=== PATIENT | male | born 1970 | race Caucasian/White ===

== ENCOUNTER 2019-09-01 05:48 | Outpatient (RCR) | payer MEDICARE, MEDICAID, SELFPAY ==
[2019-08-14 09:28] LABS: Basophils % 0.6 %; Eosinophils # 0.2 10^3/uL (0.0-0.8); Eosinophils % 3.5 %; Hematocrit 42.2 % (42.0-52.0); Hemoglobin 14.2 g/dL (11.7-16.6); Lymphocytes % 44.3 %; Mean Corpuscular HGB Conc 33.6 g/dL (30.0-36.0); Mean Corpuscular Hemoglobin 28.8 pg (28.0-34.0); Mean Corpuscular Volume 85.6 fL (80-94); Mean Platelet Volume 9.7 fL (7.4-10.4); Monocytes # 0.4 10^3/uL (0.2-0.9); Neutrophils # 3.1 10^3/uL (1.8-7.7); Neutrophils % 45.2 %; Nucleated Red Blood Cells % 0 %; Platelet Count 256 10^3/cmm (130-400); Red Blood Count 4.93 10^6/uL (4.1-5.3); Red Cell Distribution Width 11.8 % (12.1-15.1); White Blood Count 6.8 10^3/uL (4.0-10.0)
[2019-08-14 09:48] LABS: Prostate Specific Antigen 5.95 ng/mL (0-4)
[2019-08-14 09:59] LABS: Alanine Aminotransferase 18 U/L (0-41); Albumin Level 4.8 g/dL (3.5-5.2); Alkaline Phosphatase 65 IU/L (40-130); Anion Gap 16.7 (5-19); Aspartate Amino Transferase 18 U/L (0-40); Blood Urea Nitrogen 18 mg/dL (6-20); Calcium 9.7 mg/Dl (8.6-10.0); Carbon Dioxide 27 mmol/L (22-29); Chloride 99 mmol/L (98-107); Globulin 2.4 g/dL (1.3-4.6); Glomerular Filtration Rate 89.3 mL/min (90-130); Glucose 105 mg/dL (74-109); Potassium 3.7 mmol/L (3.5-5.1); Sodium 139 mmol/L (136-145); Total Bilirubin 0.4 mg/dL (0.15-1.2); Total Protein 7.2 g/dL (6.6-8.7)
[2019-08-14 11:06] LABS: Testosterone Total 2.5 ng/dL (193-740)
--- NOTE | 2019-08-14 17:05 | ONC FU_ITS ---
Dr. Meier follow up note Patient: Carmine Kong Unit #: [id number]: 1970 Dicatated By: Jackelin Meier M.D.Date of Visit:Aug 14, 2019 Onc Med Follow-up/Prog Note History of Present Illness: Mr. Carmine Kong, is a 49-year-old gentleman with history of hematuria eventually diagnosed with right renal stone in 2016 that time he underwent right ureteral stent and multiple ESWL and during follow-up he was noted to have elevated PSA and on 06/02/2019 his PSA was 71.94 and with abnormal KARI e.g. distinct firmness on the right apex. And on 06/02/2019, Patient underwent ultrasound guided biopsy and sonogram showed hypoechoic lesion, large area of right side of prostate extending what appears to be extraprostatic toward the base. Also significant portion of peripheral zone appeared hypoechoic. Multiple biopsies were obtained, 4 on the left side and 6 on the right, final pathology report came back large volume Otilio 3+4 prostate adenocarcinoma bilaterally, PSA was 71.94 at the time of diagnosis .Patient was started on Bicalutamide 50 mg by mouth daily by Dr. Loera. Started on Zoladex on 07/04/2019 CT scan of abdomen pelvis done on 06/14/2019 showed no evidence of metastatic disease no sclerotic bone lesions Bone scan done on 06/14/2019 showed no evidence of osseous metastatic disease. Patient denies any hematuria denies any pelvic pain denies any new bony pains denies any fever chills denies any weight loss or poor appetite. Denies any history of testosterone supplements. Denies any smoking but occasional alcohol. Came for follow-up, denies any specific complaints except occasionally hot flashes otherwise no fever or chills, no nausea or vomiting, no hematuria, no new bony pains. Now being evaluated for concurrent radiation therapy to prostate gland.Tolerating ADT with Zoladex and Casodex well otherwise Medications: Bicalutamide 1 Tablet (of 50 mg) Oral daily, Cholecalciferol 1 Tablet (of 1000 Units) Oral daily, Claritin 1 Tablet (of 10 mg) Oral daily, Diflunisal 1 Tablet (of 500 mg) Oral q 12 hours, Nortriptyline HCl 1 Capsule (of 25 mg) Oral at bedtime, Omeprazole 1 Capsule (of 20 mg) Capsule Delayed Release Oral b.i.d., Potassium Citrate ER 1 Tablet (of 10 meq ) Tablet, controlled release Oral b.i.d., ProAir HFA 1 Puff(s) (of 108 (90 base) mcg/act) Aerosol, solution Inhalation q 3 hours, Propranolol HCl 1 Tablet (of 20 mg) Oral b.i.d., traMADol HCl Tablet Oral, Zolpidem Tartrate 1 Tablet (of 5 mg) Oral at bedtime Allergies: No Known Allergies. Review of Systems: Review of Systems is not available for this patient. Vital Signs: Performed on Aug 14, 2019 16:15 Height - 68.00 in Weight - 192.8 lbs (HIGH) BSA - 2.01 sq.m BMI - 29.32 Temperature - 98.2 F (LOW) Pulse - 87 /min Respiration - 18 /min BP - 122/79 mm(hg) O2 Sat - 96 % Pain - 5 Performance Status: 0 - Fully active, able to carry on all predisease activities without restrictions. (ECOG) Physical Examination: ENMT - No oral exudates, ulcers, masses, thrush or mucositis. Oropharynx clear. Tongue normal, Respiratory - Lungs are clear to auscultation without rhonchi or wheezing, Cardiovascular - Regular rate and rhythm of heart, Abdomen - Non-tender, non-distended, Good bowel sounds. No guarding or rebound tenderness. No pulsatile masses, Extremities - no edema. Lab/Imaging: Test performed on Aug 14, 2019 09:06 Testosterone 2.5 ng/dL Glucose 105 mg/dL BUN 18 mg/dL Creatinine 0.9 mg/dL Cr Clearance (Est) 121.4600 mL/min Sodium 139 mmol/L Potassium 3.7 mmol/L Chloride 99 mmol/L CO2 27 mmol/L Calcium 9.7 mg/dL Protein, Total 7.2 g/dL Albumin 4.8 g/dL Globulin 2.4 g/dL Bilirubin, Total 0.4 mg/dL Alkaline Phosphatase 65 IU/L AST (SGOT) 18 IU/L ALT (SGPT) 18 IU/L WBC 6.8 10^9/L RBC 4.93 10^12/L HGB 14.2 g/dL HCT 42.2 % MCV 85.6 fl MCH 28.8 pg MCHC 33.6 g/dL RDW 11.8 % Platelet Count 256 10^9/L MPV 9.7 fL Neutrophils (Gran) 3.1 10^9/L Lymphocytes 3.0 10^9/L Monocytes 0.4 10^9/L Eosinophils 0.2 10^9/L Basophils 0.0 10^9/L Neutrophil % 3.5 % Manual Lymphocytes 44.3 % Manual Monocytes 6.0 % Manual Eosinophils 3.5 % Manual Basophils 0.6 % NRBCs 0.0 /100 WBC PSA 5.95 ng/mL Impression: Prostatic adenocarcinoma, large volume, Norris score 3+4 bilaterally per TRUSP/biopsy done on 06/02/2019, PSA at the time of diagnosis was 71.[address] scan of abdomen pelvis done on 06/14/2019 showed no evidence of metastatic disease Bone scan done on 06/14/2019 showed no evidence of metastatic disease History of right renal stone status post ESWL Started on Zoladex on 07/04/2019 along with Casodex which was already started by Dr. Loera Plan: Discussed with patient regarding his labs white blood count 6.8 hemoglobin 13.2 crit 42.2 platelets 256,000 CMP within normal limits PSA 5.95 testosterone 2.5 compared to PSA 71.94 on 06/02/2019 Clinically, patient is doing well tolerating ADT with Zoladex and Casodex well and follow-up lab showed excellent response as PSA has gone down to 5.95 today compared to 71.94 on 06/02/2019. Patient is tolerating ADT well but with expected side effects e.g. off-and-on hot flashes. And generalized weakness and fatigue. Patient was seen by radiation oncology now being considered for concurrent radiation therapy to prostate. At this point we'll discontinue Casodex and he will return to clinic in 2 months for his 3 monthly dose of Zoladex 10.8 mg with PSA level. Signed By: Jackelin Meier M.D. <<Signature on File>>
--- NOTE | 2019-08-16 | CT_ITS ---
Radation Therapy Planning CT images; total exam DLP: 1360.71 mGy-cm MTDD
--- NOTE | 2019-08-30 16:11 | ONCRAD TMN_ITS ---
Radiation Oncology Weekly Treatment Management Patient: Carmine Kong MR#: [id number] : 1970> Age: 49> Sex: Male Dictated by: Dr. Jamaal Troncoso Date of Service: 08/30/2019 Referring Physician(s) : Dr. Jp Loera Primary Diagnosis: C61 - Malignant neoplasm of prostate, Diagnosed 07/05/2019 (Active) Radiotherapy to date: Course: Prostate 2019, Treatment Site: Pelvis 45Gy, Ref. ID: [id number], Energy: 15X/6X, Dose/Fx (cGy): 180, #Fx: 2 , Dose Correction (cGy): 0, Total Dose (cGy): 360, Start Date: 08/29/2019, Elapsed Days: 1 Current Complaints/Interval History: Constitutional Complains of moderate fatigue. Complains of night sweats which occur every night. Denies lack of appetite and fever. Gastrointestinal Complains of constipation and satiety. Denies diarrhea, rectal bleeding or irritation Genitourinary (M) Complains of nocturia gets up about 4 to 5 times per night which is his baseline. Denies dysuria, frequency and urgency. Current Medications: Bicalutamide, cholecalciferol, claritin, diflunisal, nortriptyline HCl, omeprazole, potassium Citrate ER, proAir HFA, propranolol HCl, traMADol HCl, zolpidem Tartrate. Allergies: No Known Allergies Vital Signs: Performed on 08/30/2019 2:31 PM BMI - 29.559 kg/m2 (high), Height - 68.00 in, Weight - 194.4 lbs, Temperature - 98.3 f, Pulse - 80, Respiration - 18, O2 Sat - 95 % (low), Pain - 3 and BP - 120/ 89 mm(hg). Physical Exam: Appears stable, no skin erythema or desquamation. Performance Status: 0 - Fully active, able to carry on all predisease activities without restrictions. (ECOG) Lab: Test performed on 08/14/2019 9:06 AM Testosterone - 2.5 ng/dl (low) and PSA - 5.95 ng/ml (high). Imaging: No new diagnostic imaging was performed since the last weekly treatment visit. All radiation therapy related imaging (including but not limited to CBCT generated images) was reviewed. Appropriate changes, if any, were made to assure accurate target localization. Impression/Plan: Tolerating treatment well. Continue treatment as planned. Instructed the patient to keep a full bladder and empty rectum during RT treatment. CPT: 24233 Signed by: Dr. Jamaal Troncoso>08/30/2019 4:10:23 PM <<Signature on File>>
== END 2019-09-01 23:59 | disposition home or self-care (01) ==
LOC: ONCMED 05:48
PROVIDERS: Internal Medicine Hematology & Oncology; Family Provider Family Medicine; PCP Family Medicine; Visit Provider Radiology Radiation Oncology
DX: Z51.0 Encounter for antineoplastic radiation therapy (principal); C61 Malignant neoplasm of prostate; K59.00 Constipation, unspecified; R68.81 Early satiety; Z79.818 Long term (current) use of other agents affecting estrogen receptors and estrogen levels; Z79.899 Other long term (current) drug therapy; Z87.442 Personal history of urinary calculi
CPT/HCPCS: 36415; 77263; 77280; 77290; 77300; 77301; 77334; 77338; 77385; 80053; 84153; 84403; 85025; 99214; Q9967

== ENCOUNTER 2019-09-28 05:50 | Outpatient (RCR) | payer MEDICARE, MEDICAID, SELFPAY ==
--- NOTE | 2019-09-05 18:14 | ONCRAD TMN_ITS ---
Radiation Oncology Weekly Treatment Management Patient: Carmine Kong MR#: [id number] : 1970> Age: 49> Sex: Male Dictated by: Dr. Jamaal Troncoso Date of Service: 09/05/2019 Referring Physician(s) : Dr. Jp Loera Primary Diagnosis: C61 - Malignant neoplasm of prostate, Diagnosed 07/05/2019 (Active) Radiotherapy to date: Course: Prostate 2019, Treatment Site: Pelvis 45Gy, Ref. ID: [id number], Energy: 15X/6X, Dose/Fx (cGy): 180, #Fx: , Dose Correction (cGy): 0, Total Dose (cGy): 1,080, Start Date: 08/29/2019, Elapsed Days: 7 Current Complaints/Interval History: Constitutional Complains of severe fatigue. Complains of night sweats which occur every night. Denies lack of appetite and fever. Gastrointestinal Denies constipation and diarrhea. No rectal bleeding or irritation Genitourinary (M) Complains of frequency and nocturia gets up about 4 to 5 times per night. Denies dysuria and urgency. Current Medications: Bicalutamide, cholecalciferol, claritin, diflunisal, nortriptyline HCl, omeprazole, potassium Citrate ER, proAir HFA, propranolol HCl, traMADol HCl, tylenol with Codeine #3, zolpidem Tartrate. Allergies: No Known Allergies Vital Signs: Performed on 09/05/2019 2:06 PM BMI - 30.258 kg/m2 (high), Height - 68.00 in, Weight - 199.0 lbs, Temperature - 97.9 f, Pulse - 76, Respiration - 16, O2 Sat - 96 %, Pain - 0 and BP - 121/ 82 mm(hg). Physical Exam: Appears stable, no skin erythema or desquamation. Performance Status: 1 - No physically strenuous activity, but ambulatory and able to carry out light or sedentary work (e.g. office work, light house work). (ECOG) Lab: Test performed on 08/14/2019 9:06 AM Testosterone - 2.5 ng/dl (low) and PSA - 5.95 ng/ml (high). Imaging: No new diagnostic imaging was performed since the last weekly treatment visit. All radiation therapy related imaging (including but not limited to CBCT generated images) was reviewed. Appropriate changes, if any, were made to assure accurate target localization. Impression/Plan: Tolerating treatment well with expected side effects. Continue treatment as planned. CPT: 03996 Signed by: Dr. Jamaal Troncoso>09/05/2019 6:13:02 PM <<Signature on File>>
--- NOTE | 2019-09-12 15:34 | ONCRAD TMN_ITS ---
Radiation Oncology Weekly Treatment Management Patient: Carmine Kong MR#: [id number] : 1970> Age: 49> Sex: Male Dictated by: Dr. Jamaal Troncoso Date of Service: 09/12/2019 Referring Physician(s) : Dr. Jp Loera Primary Diagnosis: C61 - Malignant neoplasm of prostate, Diagnosed 07/05/2019 (Active) Radiotherapy to date: Course: Prostate 2019, Treatment Site: Pelvis 45Gy, Ref. ID: [id number], Energy: 15X/6X, Dose/Fx (cGy): 180, #Fx: , Dose Correction (cGy): 0, Total Dose (cGy): 1,800, Start Date: 08/29/2019, Elapsed Days: 14 Current Complaints/Interval History: Constitutional Complains of mild fatigue. Complains of night sweats which occur every night. Denies lack of appetite and fever. Gastrointestinal Complains of satiety. Denies diarrhea, rectal irritation or bleeding. Genitourinary (M) Complains of mild dysuria and nocturia gets up about 4 to 5 times per night. Denies frequency and urgency. Current Medications: Bicalutamide, cholecalciferol, claritin, diflunisal, nortriptyline HCl, omeprazole, potassium Citrate ER, proAir HFA, propranolol HCl, traMADol HCl, tylenol with Codeine #3, zolpidem Tartrate. Allergies: No Known Allergies Vital Signs: Performed on 09/12/2019 2:10 PM BMI - 30.015 kg/m2 (high), Height - 68.00 in, Weight - 197.4 lbs, Temperature - 97.0 f, Pulse - 82, Respiration - 18, O2 Sat - 96 %, Pain - 2 and BP - 125/ 77 mm(hg). Physical Exam: Appears stable, no skin erythema or desquamation. Performance Status: 1 - No physically strenuous activity, but ambulatory and able to carry out light or sedentary work (e.g. office work, light house work). (ECOG) Lab: Test performed on 08/14/2019 9:06 AM Testosterone - 2.5 ng/dl (low) and PSA - 5.95 ng/ml (high). Imaging: No new diagnostic imaging was performed since the last weekly treatment visit. All radiation therapy related imaging (including but not limited to CBCT generated images) was reviewed. Appropriate changes, if any, were made to assure accurate target localization. Impression/Plan: Tolerating treatment well with expected side effects. Continue treatment as planned. Instructed the patient again the importance of keeping a full bladder and empty rectum during RT. CPT: 54959 Signed by: Dr. Jamaal Troncoso>09/12/2019 3:34:05 PM <<Signature on File>>
--- NOTE | 2019-09-19 16:50 | ONCRAD TMN_ITS ---
Radiation Oncology Weekly Treatment Management Patient: Carmine Kong MR#: [id number] : 1970> Age: 49> Sex: Male Dictated by: Dr. Jamaal Troncoso Date of Service: 09/19/2019 Referring Physician(s) : Dr. Jp Loera Primary Diagnosis: C61 - Malignant neoplasm of prostate, Diagnosed 07/05/2019 (Active) Radiotherapy to date: Course: Prostate 2019, Treatment Site: Pelvis 45Gy, Ref. ID: [id number], Energy: 15X/6X, Dose/Fx (cGy): 180, #Fx: , Dose Correction (cGy): 0, Total Dose (cGy): 2,520, Start Date: 08/29/2019, Elapsed Days: 21 Current Complaints/Interval History: Constitutional Complains of moderate fatigue. Complains of night sweats which occur every night. Denies lack of appetite and fever. Gastrointestinal Complains of intermittent diarrhea which is characterized as loose, watery. Denies rectal bleeding or irritation Genitourinary (M) Complains of dysuria and nocturia gets up about 5 to 6 times per night. Denies frequency and urgency. Current Medications: Bicalutamide, cholecalciferol, claritin, diflunisal, nortriptyline HCl, omeprazole, potassium Citrate ER, proAir HFA, propranolol HCl, traMADol HCl, tylenol with Codeine #3, zolpidem Tartrate. Allergies: No Known Allergies Vital Signs: Performed on 09/19/2019 2:52 PM BMI - 29.65 kg/m2 (high), Height - 68.00 in, Weight - 195.0 lbs, Temperature - 98.1 f, Pulse - 72, Respiration - 18, O2 Sat - 97 %, Pain - 4 and BP - 124/ 85 mm(hg). Physical Exam: Appears stable, no skin erythema or desquamation. Performance Status: 1 - No physically strenuous activity, but ambulatory and able to carry out light or sedentary work (e.g. office work, light house work). (ECOG) Lab: Test performed on 08/14/2019 9:06 AM Testosterone - 2.5 ng/dl (low) and PSA - 5.95 ng/ml (high). Imaging: No new diagnostic imaging was performed since the last weekly treatment visit. All radiation therapy related imaging (including but not limited to CBCT generated images) was reviewed. Appropriate changes, if any, were made to assure accurate target localization. Impression/Plan: Tolerating treatment well with expected side effects. Continue treatment as planned. Continue Imodium prn watery diarrhea and motrin taken with meals prn dysuria. His prostate has shrunk compared with that in the beginning of radiotherapy. Therefore he will undergo a re-CT simulation to adjust to the anatomy change and better protect rectum. CPT: 03570 Signed by: Dr. Jamaal Troncoso>09/19/2019 4:49:14 PM <<Signature on File>>
--- NOTE | 2019-09-20 | CT_ITS ---
Radation Therapy Planning CT images; total exam DLP: 1204.73 mGy-cm MTDD
--- NOTE | 2019-09-27 15:57 | ONCRAD TMN_ITS ---
Radiation Oncology Weekly Treatment Management Patient: Carmine Kong MR#: [id number] : 1970> Age: 49> Sex: Male Dictated by: Dr. Jamaal Troncoso Date of Service: 09/27/2019 Referring Physician(s) : Dr. Jp Loera Primary Diagnosis: C61 - Malignant neoplasm of prostate, Diagnosed 07/05/2019 (Active) Radiotherapy to date: Course: Prostate 2019, Treatment Site: Pelvis 45Gy, Ref. ID: [id number], Energy: 15X/6X, Dose/Fx (cGy): 180, #Fx: 15 / 15, Dose Correction (cGy): 0, Total Dose (cGy): 2,700, Start Date: 08/29/2019, Elapsed Days: Prostate 2019, Treatment Site: [id number] reCT, Ref. ID: [id number], Energy: 15X/6X, Dose/Fx (cGy): 180, #Fx: 5 / 10, Dose Correction (cGy): 0, Total Dose (cGy): 900, Start Date: 09/21/2019, Elapsed Days: 6 Current Complaints/Interval History: Constitutional Complains of lack of appetite. Complains of severe fatigue. Complains of night sweats. Denies fever. Gastrointestinal Complains of intermittent diarrhea which is characterized as loose, watery. Complains of satiety. Denies constipation. No rectal bleeding or irritation Genitourinary (M) Complains of dysuria off and on. Complains of nocturia more than 4 times/night. Denies frequency and urgency. Current Medications: Bicalutamide, cholecalciferol, claritin, diflunisal, nortriptyline HCl, omeprazole, potassium Citrate ER, proAir HFA, propranolol HCl, traMADol HCl, tylenol with Codeine #3, zolpidem Tartrate. Allergies: No Known Allergies Vital Signs: Performed on 09/27/2019 2:12 PM BMI - 29.619 kg/m2 (high), Height - 68.00 in, Weight - 194.8 lbs, Temperature - 98.1 f, Pulse - 75, Respiration - 18, O2 Sat - 96 %, Pain - 3 and BP - 130/ 83 mm(hg). Physical Exam: Appears stable, no skin erythema or desquamation. Performance Status: 1 - No physically strenuous activity, but ambulatory and able to carry out light or sedentary work (e.g. office work, light house work). (ECOG) Lab: Test performed on 08/14/2019 9:06 AM Testosterone - 2.5 ng/dl (low) and PSA - 5.95 ng/ml (high). Imaging: No new diagnostic imaging was performed since the last weekly treatment visit. All radiation therapy related imaging (including but not limited to CBCT generated images) was reviewed. Appropriate changes, if any, were made to assure accurate target localization. Impression/Plan: Tolerating treatment well with expected side effects. Continue treatment as planned. Recommended motrin prn dysuria and Imodium prn diarrhea CPT: 64139 Signed by: Dr. Jamaal Troncoso>09/27/2019 3:55:47 PM <<Signature on File>>
== END 2019-09-30 23:59 | disposition home or self-care (01) ==
LOC: ONCMED 05:50
PROVIDERS: Family Provider Family Medicine; PCP Family Medicine; Visit Provider Radiology Radiation Oncology
DX: Z51.0 Encounter for antineoplastic radiation therapy (principal); C61 Malignant neoplasm of prostate; Z79.891 Long term (current) use of opiate analgesic
CPT/HCPCS: 77280; 77290; 77300; 77301; 77336; 77338; 77385; Q9967

== ENCOUNTER 2019-10-31 06:48 | Outpatient (RCR) | payer MEDICARE, MEDICAID, SELFPAY ==
--- NOTE | 2019-10-02 15:36 | ONCRAD TMN_ITS ---
Radiation Oncology Weekly Treatment Management Patient: Carmine Kong MR#: [id number] : 1970 Age: 49 Sex: Male Dictated by: Dr. Jamaal Troncoso Date of Service: 10/02/2019 Referring Physician(s) : Dr. Jp Loera Primary Diagnosis: C61 - Malignant neoplasm of prostate, Diagnosed 07/05/2019 (Active) Radiotherapy to date: Course: Prostate 2019, Treatment Site: Pelvis 45Gy, Ref. ID: [id number], Energy: 15X/6X, Dose/Fx (cGy): 180, #Fx: 15 / 15, Dose Correction (cGy): 0, Total Dose (cGy): 2,700, Start Date: 08/29/2019, End Date: 09/20/2019, Elapsed Days: 22 Course: Prostate 2019, Treatment Site: [id number] reCT, Ref. ID: [id number], Energy: 15X/6X, Dose/Fx (cGy): 180, #Fx: 7 / 10, Dose Correction (cGy): 0, Total Dose (cGy): 1,260, Start Date: 09/21/2019, Elapsed Days: 11 Current Complaints/Interval History: Constitutional Complains of severe fatigue, night sweats which occur every night. Denies lack of appetite off and on and fever. Gastrointestinal Complains of intermittent diarrhea which is characterized as loose, semisolid. Denies constipation. Genitourinary (M) Complains of dysuria and nocturia more than 4 times/night. Denies frequency and urgency. Current Medications: Bicalutamide, cholecalciferol, claritin, diflunisal, nortriptyline HCl, omeprazole, potassium Citrate ER, proAir HFA, propranolol HCl, traMADol HCl, tylenol with Codeine #3, zolpidem Tartrate. Allergies: No Known Allergies Vital Signs: Performed on 10/02/2019 2:13 PM BMI - 29.802 kg/m2 (high), Height - 68.00 in, Weight - 196.0 lbs, Temperature - 98.4 f, Pulse - 75, Respiration - 18, O2 Sat - 97 %, Pain - 0 and BP - 123/ 84 mm(hg). Physical Exam: Appears stable, no skin erythema or desquamation. Performance Status: 1 - No physically strenuous activity, but ambulatory and able to carry out light or sedentary work (e.g. office work, light house work). (ECOG) Lab: None pending in Radiation Oncology. Imaging: No new diagnostic imaging was performed since the last weekly treatment visit. All radiation therapy related imaging (including but not limited to CBCT generated images) was reviewed. Appropriate changes, if any, were made to assure accurate target localization. Impression/Plan: Tolerating treatment well with expected side effects. Continue treatment as planned. Recommended motrin prn dysuria and Imodium prn watery diarrhea CPT: 94462 Signed by: Dr. Jamaal Troncoso>10/02/2019 3:34:30 PM <<Signature on File>>
--- NOTE | 2019-10-11 14:53 | ONCRAD TMN_ITS ---
Radiation Oncology Weekly Treatment Management Patient: Carmine Kong MR#: [id number] : 1970> Age: 49> Sex: Male Dictated by: Dr. Ty Lo Date of Service: 10/11/2019 Referring Physician(s) : Dr. Jp Loera Primary Diagnosis: C61 - Malignant neoplasm of prostate, Diagnosed 07/05/2019 (Active) Radiotherapy to date: Course: Prostate 2019, Treatment Site: Pelvis 45Gy, Ref. ID: [id number], Energy: 15X/6X, Dose/Fx (cGy): 180, #Fx: 15 / 15, Dose Correction (cGy): 0, Total Dose (cGy): 2,700, Start Date: 08/29/2019, End Date: 09/20/2019, Elapsed Days: 22 Treatment Site: Prostate 55Gy, Ref. ID: [id number], Energy: 15X/6X, Dose/Fx (cGy): 200, #Fx: 4 / 5, Dose Correction (cGy): 0, Total Dose (cGy): 800, Start Date: 10/06/2019, End Date: 10/11/2019, Elapsed Days: 5 Treatment Site: [id number] reCT, Ref. ID: [id number], Energy: 15X/6X, Dose/Fx (cGy): 180, #Fx: 10 / 10, Dose Correction (cGy): 0, Total Dose (cGy): 1,800, Start Date: 09/21/2019, End Date: 10/05/2019, Elapsed Days: 14 Current Complaints/Interval History: Patient has developed urinary frequency, urgency, nocturia (8-10 X epr night). He also complains of abdominal pain, nausea and diarrhea, Current Medications: Bicalutamide, cholecalciferol, claritin, diflunisal, nortriptyline HCl, omeprazole, potassium Citrate ER, proAir HFA, propranolol HCl, traMADol HCl, tylenol with Codeine #3, zolpidem Tartrate. Allergies: No Known Allergies Vital Signs: Performed on 10/11/2019 2:21 PM Weight - 197.2 lbs, Temperature - 98.2 f, Pulse - 84, Respiration - 16, O2 Sat - 95 % (low), Pain - 5 and BP - 135/ 80 mm(hg). Physical Exam: Appears stable, no skin erythema or desquamation. Performance Status: 1 - No physically strenuous activity, but ambulatory and able to carry out light or sedentary work (e.g. office work, light house work). (ECOG) Lab: None pending in Radiation Oncology. Test performed on 08/14/2019 9:06 AM Testosterone - 2.5 ng/dl (low) and PSA - 5.95 ng/ml (high). Imaging:. All radiation therapy related imaging (including but not limited to kV, MV, and CBCT generated images) was reviewed. Appropriate changes, if any, were made to assure accurate target localization. Impression/Plan: Tolerating treatment well with expected side effects. I prescribed Detrol 2 mg Tabs # 30, for urinary symptoms. Also recommended Physical Therapy for his back pain. He takes Imodium 2 mg 2 tabs daily, uses anti-nausea and medication and Preparation-H for mulugeta-anal discomfort. Continue treatment as planned. CPT: 91515 Signed by: Dr. Ty Lo>10/11/2019 2:51:47 PM <<Signature on File>>
[2019-10-12 14:47] LABS: Prostate Specific Antigen 0.25 ng/mL (0-4)
[2019-10-12] MEDS: goserelin acetate 10.8 mg Implant SUBCUT (15:50)
--- NOTE | 2019-10-12 15:50 | ONC FU_ITS ---
Dr. Meier follow up note Patient: Carmine Kong Unit #: [id number]: 1970 Dicatated By: Jackelin Meier M.D.Date of Visit:Oct 12, 2019 Onc Med Follow-up/Prog Note History of Present Illness: Mr. Carmine Kong, is a 49-year-old gentleman with history of hematuria eventually diagnosed with right renal stone in 2016 that time he underwent right ureteral stent and multiple ESWL and during follow-up he was noted to have elevated PSA and on 06/02/2019 his PSA was 71.94 and with abnormal KARI e.g. distinct firmness on the right apex. And on 06/02/2019, Patient underwent ultrasound guided biopsy and sonogram showed hypoechoic lesion, large area of right side of prostate extending what appears to be extraprostatic toward the base. Also significant portion of peripheral zone appeared hypoechoic. Multiple biopsies were obtained, 4 on the left side and 6 on the right, final pathology report came back large volume [place] 3+4 prostate adenocarcinoma bilaterally, PSA was 71.94 at the time of diagnosis .Patient was started on Bicalutamide 50 mg by mouth daily by Dr. Loera. Started on Zoladex on 07/04/2019 CT scan of abdomen pelvis done on 06/14/2019 showed no evidence of metastatic disease no sclerotic bone lesions Bone scan done on 06/14/2019 showed no evidence of osseous metastatic disease. Patient denies any hematuria denies any pelvic pain denies any new bony pains denies any fever chills denies any weight loss or poor appetite. Denies any history of testosterone supplements. Denies any smoking but occasional alcohol. Now being treated with combined radiation therapy and ADT with Zoladex, patient discontinued Casodex on 08/14/2019 Came for follow-up, denies any specific complaint except occasionally hot flashes otherwise no fever or chills no nausea or vomiting no diarrhea constipation no hematuria or dysuria tolerating combined radiation therapy and Zoladex well Medications: Bicalutamide 1 Tablet (of 50 mg) Tablet Oral daily, Cholecalciferol 1 Tablet (of 1000 Units) Oral daily, Claritin 1 Tablet (of 10 mg) Oral daily, Diflunisal 1 Tablet (of 500 mg) Oral q 12 hours, Nortriptyline HCl 1 Capsule (of 25 mg) Oral at bedtime, Omeprazole 1 Capsule (of 20 mg) Capsule Delayed Release Oral b.i.d., Potassium Citrate ER 1 Tablet (of 10 meq ) Tablet, controlled release Oral b.i.d., ProAir HFA 1 Puff(s) (of 108 (90 base) mcg/act) Aerosol, solution Inhalation q 3 hours, Propranolol HCl 1 Tablet (of 20 mg) Oral b.i.d., traMADol HCl Tablet Oral, Tylenol with Codeine #3 1 (300-30 mg) Tablet Oral b.i.d. PRN, Zolpidem Tartrate 1 Tablet (of 5 mg) Oral at bedtime Allergies: No Known Allergies. Review of Systems: Review of Systems is not available for this patient. Vital Signs: Performed on Oct 12, 2019 14:49 Height - 68.00 in Weight - 197.2 lbs BSA - 2.03 sq.m BMI - 29.98 Temperature - 97.6 F (LOW) Pulse - 80 /min Respiration - 22 /min BP - 129/81 mm(hg) O2 Sat - 95 % (LOW) Pain - 4 Performance Status: 0 - Fully active, able to carry on all predisease activities without restrictions. (ECOG) Physical Examination: ENMT - No oral exudates, ulcers, masses, thrush or mucositis. Oropharynx clear. Tongue normal, Respiratory - Lungs are clear to auscultation without rhonchi or wheezing, Cardiovascular - Regular rate and rhythm of heart, Abdomen - Non-tender, non-distended Good bowel sounds. No guarding or rebound tenderness. No pulsatile masses, Extremities - no edema. Lab/Imaging: Test performed on Aug 14, 2019 09:06 Testosterone 2.5 ng/dL Glucose 105 mg/dL BUN 18 mg/dL Creatinine 0.9 mg/dL Cr Clearance (Est) 121.4600 mL/min Sodium 139 mmol/L Potassium 3.7 mmol/L Chloride 99 mmol/L CO2 27 mmol/L Calcium 9.7 mg/dL Protein, Total 7.2 g/dL Albumin 4.8 g/dL Globulin 2.4 g/dL Bilirubin, Total 0.4 mg/dL Alkaline Phosphatase 65 IU/L AST (SGOT) 18 IU/L ALT (SGPT) 18 IU/L WBC 6.8 10^9/L RBC 4.93 10^12/L HGB 14.2 g/dL HCT 42.2 % MCV 85.6 fl MCH 28.8 pg MCHC 33.6 g/dL RDW 11.8 % Platelet Count 256 10^9/L MPV 9.7 fL Neutrophils (Gran) 3.1 10^9/L Lymphocytes 3.0 10^9/L Monocytes 0.4 10^9/L Eosinophils 0.2 10^9/L Basophils 0.0 10^9/L Neutrophil % 3.5 % Manual Lymphocytes 44.3 % Manual Monocytes 6.0 % Manual Eosinophils 3.5 % Manual Basophils 0.6 % NRBCs 0.0 /100 WBC PSA 5.95 ng/mL Impression: Prostatic adenocarcinoma, large volume, [place] score 3+4 bilaterally per TRUSP/biopsy done on 06/02/2019, PSA at the time of diagnosis was 71.[address] scan of abdomen pelvis done on 06/14/2019 showed no evidence of metastatic disease Bone scan done on 06/14/2019 showed no evidence of metastatic disease History of right renal stone status post ESWL Started on Zoladex on 07/04/2019 along with Casodex which was already started by Dr. Loera Plan: Discussed with patient regarding his labs PSA 0.25 compared to 5.95 on 08/14/2019 Clinically, patient is doing well, with no signs symptoms suggestive of disease progression, tolerating combined X BRT to prostate and 3 monthly Zoladex well, Casodex was discontinued after one month. We will proceed with next 3 monthly dose of Zoladex today and then he will return to clinic in 3 months with PSA in the meantime patient will continue with radiation therapy as planned by radiation oncology. Signed By: Jackelin Meier M.D. <<Signature on File>>
--- NOTE | 2019-10-17 14:44 | ONCRAD TMN_ITS ---
Radiation Oncology Weekly Treatment Management Patient: Carmine Kong MR#: [id number] : 1970> Age: 49> Sex: Male Dictated by: Dr. Александр Sandra Date of Service: 10/17/2019 Referring Physician(s) : Dr. Jp Loera Primary Diagnosis: C61 - Malignant neoplasm of prostate, Diagnosed 07/05/2019 (Active) Radiotherapy to date: Course: Prostate 2019, Treatment Site: Pelvis 45Gy, Ref. ID: [id number], Energy: 15X/6X, Dose/Fx (cGy): 180, #Fx: 15 / 15, Dose Correction (cGy): 0, Total Dose (cGy): 2,700, Start Date: 08/29/2019, End Date: 09/20/2019, Elapsed Days: 22 Treatment Site: Prostate 55Gy, Ref. ID: [id number], Energy: 15X/6X, Dose/Fx (cGy): 200, #Fx: 5 / 5, Dose Correction (cGy): 0, Total Dose (cGy): 1,000, Start Date: 10/06/2019, End Date: 10/12/2019, Elapsed Days: 6 Treatment Site: Prostate 81Gy, Ref. ID: [id number], Energy: 15X/6X, Dose/Fx (cGy): 200, #Fx: , Dose Correction (cGy): 0, Total Dose (cGy): 600, Start Date: 10/13/2019, Elapsed Days: 4 Treatment Site: [id number] reCT, Ref. ID: [id number], Energy: 15X/6X, Dose/Fx (cGy): 180, #Fx: 10 / 10, Dose Correction (cGy): 0, Total Dose (cGy): 1,800, Start Date: 09/21/2019, End Date: 10/05/2019, Elapsed Days: 14 Current Complaints/Interval History: Mr. Kong is in the final 2 weeks of radiation. He has received 33 of 42 treatments. He has had no significant change in his performance status. His appetite is stable. He has altered his diet somewhat in order to avoid diarrhea. He is taking occasional doses of Imodium rigAD as well. He has no particular bowel complaints at this time. In terms of his bladder, he does have mild burning with urination and gets up 6-7 times per night to empty his bladder. The symptoms are stable. He states that he had nocturia x3 or 4 prior to the initiation of radiation. He has no questions about the treatment process. Continue as planned. Current Medications: Bicalutamide, cholecalciferol, claritin, diflunisal, nortriptyline HCl, omeprazole, oxybutynin Chloride, potassium Citrate ER, proAir HFA, propranolol HCl, traMADol HCl, tylenol with Codeine #3, zolpidem Tartrate. Allergies: No Known Allergies Vital Signs: Physical Exam: Appears stable, no skin erythema or desquamation. Performance Status: 0 - Fully active, able to carry on all predisease activities without restrictions. (ECOG) Lab: None pending in Radiation Oncology. Test performed on 08/14/2019 9:06 AM Testosterone - 2.5 ng/dl (low) and PSA - 5.95 ng/ml (high). Imaging: No new diagnostic imaging was performed since the last weekly treatment visit. All radiation therapy related imaging (including but not limited to kV, MV, and CBCT generated images) was reviewed. Appropriate changes, if any, were made to assure accurate target localization. Impression/Plan: Tolerating treatment well with expected side effects. Continue treatment as planned. CPT: 17484 Signed by: Dr. Александр Sandra>10/17/2019 2:42:38 PM <<Signature on File>>
--- NOTE | 2019-10-25 14:32 | ONCRAD TMN_ITS ---
Radiation Oncology Weekly Treatment Management Patient: Carmine Kong MR#: [id number] : 1970> Age: 49> Sex: Male Dictated by: Dr. Александр Sandra Date of Service: 10/25/2019 Referring Physician(s) : Dr. Jp Loera Primary Diagnosis: C61 - Malignant neoplasm of prostate, Diagnosed 07/05/2019 (Active) Radiotherapy to date: Course: Prostate 2019, Treatment Site: Pelvis 45Gy, Ref. ID: [id number], Energy: 15X/6X, Dose/Fx (cGy): 180, #Fx: 15 / 15, Dose Correction (cGy): 0, Total Dose (cGy): 2,700, Start Date: 08/29/2019, End Date: 09/20/2019, Elapsed Days: 22 Treatment Site: Prostate 55Gy, Ref. ID: [id number], Energy: 15X/6X, Dose/Fx (cGy): 200, #Fx: 5 / 5, Dose Correction (cGy): 0, Total Dose (cGy): 1,000, Start Date: 10/06/2019, End Date: 10/12/2019, Elapsed Days: 6 Treatment Site: Prostate 81Gy, Ref. ID: [id number], Energy: 15X/6X, Dose/Fx (cGy): 200, #Fx: , Dose Correction (cGy): 0, Total Dose (cGy): 1,800, Start Date: 10/13/2019, End Date: 10/25/2019, Elapsed Days: 12 Treatment Site: [id number] reCT, Ref. ID: [id number], Energy: 15X/6X, Dose/Fx (cGy): 180, #Fx: 10 / 10, Dose Correction (cGy): 0, Total Dose (cGy): 1,800, Start Date: 09/21/2019, End Date: 10/05/2019, Elapsed Days: 14 Current Complaints/Interval History: Mr. Kong has 4 treatments to go. He is doing about the same as last week. He has intermittent diarrhea which responds well to Imodium. He continues to have dysuria. He has nocturia x6 or 7. He has urgency and over the past 2 days he has had some trouble starting the stream. Last week he went on oxybutynin. He thinks it is helped a little. Because of his hesitancy we discussed Flomax today. He desires a prescription and that will be sent to his pharmacy. No questions about the treatment process. Continue as planned. Current Medications: Bicalutamide, cholecalciferol, claritin, diflunisal, nortriptyline HCl, omeprazole, oxybutynin Chloride, potassium Citrate ER, proAir HFA, propranolol HCl, traMADol HCl, tylenol with Codeine #3, zolpidem Tartrate. Allergies: No Known Allergies Vital Signs: Performed on 10/25/2019 2:07 PM BMI - 30.684 kg/m2 (high), Height - 68.00 in, Weight - 201.8 lbs, Temperature - 97.9 f, Pulse - 70, Respiration - 18, O2 Sat - 98 %, Pain - 0 and BP - 116/ 81 mm(hg). Physical Exam: Appears stable, no skin erythema or desquamation. Performance Status: 1 - No physically strenuous activity, but ambulatory and able to carry out light or sedentary work (e.g. office work, light house work). (ECOG) Lab: None pending in Radiation Oncology. Test performed on 08/14/2019 9:06 AM Testosterone - 2.5 ng/dl (low). Imaging: No new diagnostic imaging was performed since the last weekly treatment visit. All radiation therapy related imaging (including but not limited to kV, MV, and CBCT generated images) was reviewed. Appropriate changes, if any, were made to assure accurate target localization. Impression/Plan: Tolerating treatment well with expected side effects. Continue treatment as planned. CPT: 53084 Signed by: Dr. Александр Sandra>10/25/2019 2:30:50 PM <<Signature on File>>
== END 2019-10-31 23:59 | disposition home or self-care (01) ==
LOC: ONCMED 06:48
PROVIDERS: Internal Medicine Hematology & Oncology; Family Provider Family Medicine; PCP Family Medicine
DX: Z51.0 Encounter for antineoplastic radiation therapy (principal); C61 Malignant neoplasm of prostate; R30.0 Dysuria; R35.1 Nocturia; R39.11 Hesitancy of micturition; K52.1 Toxic gastroenteritis and colitis; W88.1XXA Exposure to radioactive isotopes, initial encounter; M54.9 Dorsalgia, unspecified; Z79.899 Other long term (current) drug therapy; Z79.891 Long term (current) use of opiate analgesic; Z79.818 Long term (current) use of other agents affecting estrogen receptors and estrogen levels; Z87.442 Personal history of urinary calculi
CPT/HCPCS: 77014; 77300; 77336; 77338; 77385; 77427; 84153; 96372; 96402; 99214; J9202

== ENCOUNTER 2019-11-02 | Outpatient (RCR) | payer MEDICARE, MEDICAID, SELFPAY | END 2019-11-03 | disposition home or self-care (01) | LOC: ONCMED | PROVIDERS: Family Provider Family Medicine; PCP Family Medicine | DX: C61 Malignant neoplasm of prostate (principal) | CPT/HCPCS: 77336 ==

== ENCOUNTER 2019-12-11 09:24 | Outpatient (CLI) | payer MEDICARE, MEDICAID, SELFPAY ==
--- NOTE | 2019-12-11 09:15 | XR_ITS ---
WS: [id number] ABDOMEN 1 VIEW(S) HISTORY: RENAL CALCULUS COMPARISON: 12/09/2017 Mild increased amount of fecal material throughout the colon and air in the small bowel. No obstructi ve pattern. No suspicious calcifications or masses. No bone abnormality. XR/XR KUB [id number] IMPRESSION: No renal or ureteral calcifications identified.
== END 2019-12-11 09:25 | disposition home or self-care (01) ==
LOC: RAD 09:33
PROVIDERS: Family Provider Family Medicine; PCP Family Medicine; Visit Provider Urology
DX: N20.0 Calculus of kidney (principal); C61 Malignant neoplasm of prostate; N20.2 Calculus of kidney with calculus of ureter
CPT/HCPCS: 74018; 81001; 84153

== ENCOUNTER 2020-01-15 14:01 | Outpatient (CLI) | payer MEDICARE, MEDICAID, SELFPAY ==
[2020-01-15 15:05] LABS: Prostate Specific Antigen 0.088 ng/mL (0-4)
--- NOTE | 2020-01-15 15:35 | ONC FU_ITS ---
Dr. Meier follow up note Patient: Carmine Kong Unit #: [id number]: 1970 Dicatated By: Jackelin Meier M.D.Date of Visit:Jan 15, 2020 Onc Med Follow-up/Prog Note History of Present Illness: Mr. Carmine Kong, is a 49-year-old gentleman with history of hematuria eventually diagnosed with right renal stone in 2016 that time he underwent right ureteral stent and multiple ESWL and during follow-up he was noted to have elevated PSA and on 06/02/2019 his PSA was 71.94 and with abnormal KARI e.g. distinct firmness on the right apex. And on 06/02/2019, Patient underwent ultrasound guided biopsy and sonogram showed hypoechoic lesion, large area of right side of prostate extending what appears to be extraprostatic toward the base. Also significant portion of peripheral zone appeared hypoechoic. Multiple biopsies were obtained, 4 on the left side and 6 on the right, final pathology report came back large volume [place] 3+4 prostate adenocarcinoma bilaterally, PSA was 71.94 at the time of diagnosis .Patient was started on Bicalutamide 50 mg by mouth daily by Dr. Loera. Started on Zoladex on 07/04/2019 CT scan of abdomen pelvis done on 06/14/2019 showed no evidence of metastatic disease no sclerotic bone lesions Bone scan done on 06/14/2019 showed no evidence of osseous metastatic disease. Patient denies any hematuria denies any pelvic pain denies any new bony pains denies any fever chills denies any weight loss or poor appetite. Denies any history of testosterone supplements. Denies any smoking but occasional alcohol. treated with combined radiation therapy and ADT with Zoladex, Completed radiation therapy on October 25, 2019 , and patient discontinued Casodex on 08/14/2019 Came for follow-up, denies any specific complaints except persistent hot flashes, bilateral breast tenderness, generalized weakness fatigue otherwise tolerating adjuvant therapy with Zoladex, well. No fever chills no nausea or vomiting, no diarrhea or constipation. Medications: Bicalutamide 1 Tablet (of 50 mg) Tablet Oral daily, Cholecalciferol 1 Tablet (of 1000 Units) Oral daily, Claritin 1 Tablet (of 10 mg) Oral daily, Diflunisal 1 Tablet (of 500 mg) Oral q 12 hours, Nortriptyline HCl 1 Capsule (of 25 mg) Oral at bedtime, Omeprazole 1 Capsule (of 20 mg) Capsule Delayed Release Oral b.i.d., Oxybutynin Chloride 1 Tablet (of 5 mg) Oral daily, Potassium Citrate ER 1 Tablet (of 10 meq ) Tablet, controlled release Oral b.i.d., ProAir HFA 1 Puff(s) (of 108 (90 base) mcg/act) Aerosol, solution Inhalation q 3 hours, Propranolol HCl 1 Tablet (of 20 mg) Oral b.i.d., traMADol HCl Tablet Oral, Tylenol with Codeine #3 1 (300-30 mg) Tablet Oral b.i.d. PRN, Zolpidem Tartrate 1 Tablet (of 5 mg) Oral at bedtime Allergies: No Known Allergies. Review of Systems: Constitutional - Appetite is fair and weight is stable. No fever, chills. Positive for night sweats and hot flashes. Energy is decreased, ENMT - No sinus congestion/drainage. No mouth sores. Negative for sore throat, no difficulty swallowing, Hematologic/Lymphatic - No abnormal bruising or bleeding, Respiratory - No shortness of breath. No cough. No pleuritic pain or hemoptysis, Cardiovascular - No angina pain. No palpitations, Gastrointestinal - No nausea or vomiting. Positive for heartburn and acid reflux. Positive for diarrhea, no constipation. No blood in the stool or black stools, Genitourinary (M) - No dysuria. Positive for nocturia and frequency. No urgency or incontinence, Musculoskeletal - No joint or bone pain, Neurologic - No headache or dizziness. No numbness/paresthesias or other focal neurologic symptoms, Psychiatric - No anxiety or depression. Positive for insomnia. Vital Signs: Performed on Jan 15, 2020 14:50 Height - 68.00 in Weight - 201.6 lbs (LOW) BSA - 2.05 sq.m BMI - 30.65 (HIGH) Temperature - 97.7 F (LOW) Pulse - 87 /min Respiration - 18 /min BP - 127/76 mm(hg) O2 Sat - 97 % Pain - 2 Performance Status: 0 - Fully active, able to carry on all predisease activities without restrictions. (ECOG) Physical Examination: ENMT - No mouth sores, no thrush or jaundice, Respiratory - Lungs are clear, Cardiovascular - Regular rate and rhythm of heart, Abdomen - Soft, bowel sounds present, Extremities - No edema or rash. Lab/Imaging: Test performed on Oct 12, 2019 13:52 PSA 0.25 ng/mL Test performed on Aug 14, 2019 09:06 Testosterone 2.5 ng/dL Glucose 105 mg/dL BUN 18 mg/dL Creatinine 0.9 mg/dL Cr Clearance (Est) 121.4600 mL/min Sodium 139 mmol/L Potassium 3.7 mmol/L Chloride 99 mmol/L CO2 27 mmol/L Calcium 9.7 mg/dL Protein, Total 7.2 g/dL Albumin 4.8 g/dL Globulin 2.4 g/dL Bilirubin, Total 0.4 mg/dL Alkaline Phosphatase 65 IU/L AST (SGOT) 18 IU/L ALT (SGPT) 18 IU/L WBC 6.8 10^9/L RBC 4.93 10^12/L HGB 14.2 g/dL HCT 42.2 % MCV 85.6 fl MCH 28.8 pg MCHC 33.6 g/dL RDW 11.8 % Platelet Count 256 10^9/L MPV 9.7 fL Neutrophils (Gran) 3.1 10^9/L Lymphocytes 3.0 10^9/L Monocytes 0.4 10^9/L Eosinophils 0.2 10^9/L Basophils 0.0 10^9/L Neutrophil % 3.5 % Manual Lymphocytes 44.3 % Manual Monocytes 6.0 % Manual Eosinophils 3.5 % Manual Basophils 0.6 % NRBCs 0.0 /100 WBC Impression: Prostatic adenocarcinoma, large volume, [place] score 3+4 bilaterally per TRUSP/biopsy done on 06/02/2019, PSA at the time of diagnosis was 71.[address] scan of abdomen pelvis done on 06/14/2019 showed no evidence of metastatic disease Bone scan done on 06/14/2019 showed no evidence of metastatic disease History of right renal stone status post ESWL Started on Zoladex on 07/04/2019 along with Casodex , Casodex was discontinued on August 14, 2019, patient was started on radiation therapy to prostate cancer on August 29, 19992009 to October 25, 2019, Now being treated with adjuvant therapy with Zoladex alone Plan: Discussed with patient regarding his labs PSA checked today is 0.088 compared to 0.25 on October 12, 2019 Clinically, patient is doing well with no signs symptoms suggestive of recurrence of disease, tolerating adjuvant therapy with Zoladex alone well but with expected side effects e.g. generalized weakness and fatigue, hot flashes, bilateral breast tenderness. As per patient it is tolerable, so we will proceed with a 3 monthly dose of Zoladex today and then he will return to clinic in 3 months with a PSA and for follow-up Zoladex. Signed By: Jackelin Meier M.D. <<Signature on File>>
[2020-01-15] MEDS: goserelin acetate 10.8 mg Implant IM (15:45)
== END 2020-01-15 14:02 | disposition home or self-care (01) ==
LOC: ONCMED 14:05
PROVIDERS: PCP Family Medicine; Visit Provider Internal Medicine Hematology & Oncology
DX: C61 Malignant neoplasm of prostate (principal); Z79.818 Long term (current) use of other agents affecting estrogen receptors and estrogen levels; Z87.442 Personal history of urinary calculi; Z92.3 Personal history of irradiation
CPT/HCPCS: 84153; 96372; 96402; 99214; J9202

== ENCOUNTER 2020-04-16 13:57 | Outpatient (CLI) | payer MEDICARE, MEDICAID, SELFPAY ==
[2020-04-16] MEDS: lidocaine 1% INJ 20 mL INJECTION (15:35)
[2020-04-16] MEDS: goserelin acetate 10.8 mg Implant IM (15:55)
--- NOTE | 2020-04-22 09:44 | ONC FU_ITS ---
Lisa Zhang Patient Note Patient: Carmine Kong Unit #: [id number]: 1970 Dictated By: Tomy RoperDate of Visit: Apr 16, 2020 Onc MED Follow-Up/Prog Note Chief Complaint: Prostrate cancer History of Present Illness: Mr. Kong is a 49-year-old gentleman with history of hematuria eventually diagnosed with right renal stone in 2016. At that time he underwent right ureteral stent and multiple ESWL. During follow-up, he was noted to have elevated PSA and on 06/02/2019 his PSA was 71.94 with abnormal KARI e.g. distinct firmness on the right apex. On 06/02/2019, he underwent ultrasound guided biopsy and sonogram showed hypoechoic lesion, large area of right side of prostate extending what appears to be extraprostatic toward the base. Also significant portion of peripheral zone appeared hypoechoic. Multiple biopsies were obtained, 4 on the left side and 6 on the right, final pathology report came back large volume [place] 3+4 prostate adenocarcinoma bilaterally, PSA was 71.94 at the time of diagnosis Mr Kong was started on Bicalutamide 50 mg by mouth daily by Dr. Loera. He was also started on Zoladex on 07/04/2019. CT scan of abdomen pelvis done on 06/14/2019 showed no evidence of metastatic disease no sclerotic bone lesions Bone scan done on 06/14/2019 showed no evidence of osseous metastatic disease. He was treated with combined radiation therapy and ADT with Zoladex, Completed radiation therapy on October 25, 2019 and he discontinued Casodex on 08/14/2019. He is continued on adjuvant therapy with Zoladex every 3 months. He has tolerated that well. Mr. Kong is here today for follow-up. He is due for his every 3-month Zoladex. He states overall he is doing pretty good although he has had increase in hot flashes. He states at times they are just miserable. He also states that he has had some intermittent diarrhea which is new for him. He has not tried any agents to help alleviate this. He denies any recent antibiotic use or signs of infection. He denies any nausea or vomiting. He states he has not had any fever or chills. He denies any COVID excess symptoms or known exposure. He has had no recent COVID testing. He states that he has received an inhaler from his primary care and his breathing overall is much better. He states he has urinary frequency at night but this is not new and is unchanged. He denies any dysuria symptoms. He denies any lower extremity edema. He denies any pain. He states his appetite is good and his energy is fair. His biggest concern today is just the hot flashes. He states they are to the point where he is willing to try something for them. His ECOG is 1 Past Medical History: Asthma History of renal calculi Hypercholesterolemia Hypertension Inguinal hernia Lumbar radiculopathy Vitamin D deficiency Past Surgical History: Circumcision ESWL with ureteral stent placement Tube placement in left ear Colonoscopy in 2019 Allergies: No Known Allergies. Medications: Cholecalciferol 1 Tablet (of 1000 Units) Oral daily Claritin 1 Tablet (of 10 mg) Oral daily Diflunisal 1 Tablet (of 500 mg) Oral q 12 hours Nortriptyline HCl 1 Capsule (of 25 mg) Oral at bedtime Omeprazole 1 Capsule (of 20 mg) Capsule Delayed Release Oral b.i.d. Oxybutynin Chloride 1 Tablet (of 5 mg) Oral daily Potassium Citrate ER 1 Tablet (of 10 meq ) Tablet, controlled release Oral b.i.d. ProAir HFA 1 Puff(s) (of 108 (90 base) mcg/act) Aerosol, solution Inhalation q 3 hours Propranolol HCl 1 Tablet (of 20 mg) Oral b.i.d. traMADol HCl Tablet Oral PRN Tylenol with Codeine #3 1 (300-30 mg) Tablet Oral b.i.d. PRN Zolpidem Tartrate 1 Tablet (of 5 mg) Oral at bedtime Family History: Mr. Kong's mother is alive: type II diabetes, and hypertension, and heart disease. Mr. Kong's father at age 86: congestive heart failure, and type II diabetes. Mr. Kong's maternal grandmother is : cancer of unknown primary. Social History: Mr. Kong is and he is a disabled. Mr. Kong has never smoked. He has no history of drinking. Mr. Kong reports the following support systems: lives with spouse, significant other, family, or friends, lives in own house, supportive family/friends willing to assist with needs, and adequate transportation available for expected visits. His diet consists of regular meals. He indicates his activity level as: occasional exercise. Review Of Symptoms: Constitutional Denies fevers, chills, night sweats, excessive fatigue or weight loss. Hot flashes getting worse. Allergic/Immunologic No reactions. Eyes Denies significant visual changes. No diplopia. No amaurosis. ENMT Denies changes in hearing, sore throat, mouth sores, difficulty or changes in swallowing ability, and/or sinus drainage. Hematologic/Lymphatic Denies easy bruising or bleeding. The patient denies any tender or palpable lymph nodes. Respiratory Denies dyspnea on exertion, chest pain, cough or hemoptysis. Denies orthopnea. Cardiovascular Denies anginal chest pain, palpitations or orthopnea. Gastrointestinal Denies nausea, vomiting, diarrhea, GI bleeding, or constipation. Denies change in bowel habits and/or stool color, no heartburn or early satiety. Genitourinary (M) Denies hematuria, dysuria, increased frequency, urgency, hesitancy or incontinence. Musculoskeletal Denies joint pain, swelling or redness. No decreased range of motion. Integumentary Denies chronic rashes, inflammation, ulcerations or skin changes. Neurologic Denies headache, blurred vision, and no areas of focal weakness or numbness. Normal gait. No sensory problems. Psychiatric Denies insomnia, depression, phong or mood swings. Vital Signs: Performed on Apr 16, 2020 15:01 Height - 68.00 in Weight - 209.8 lbs (HIGH) BSA - 2.09 sq.m BMI - 31.90 (HIGH) Temperature - 97.8 F (LOW) Pulse - 87 /min Respiration - 22 /min BP - 135/85 mm(hg) O2 Sat - 97 % Pain - 5,1 - No physically strenuous activity, but ambulatory and able to carry out light or sedentary work (e.g. office work, light house work). (ECOG) Physical Examination: Constitutional Alert, oriented, no acute distress. Skin pink, warm and dry. Head Normocephalic; atraumatic. Eyes Conjunctivae and sclerae are clear and without icterus. Pupils are reactive and equal. Neck Supple without masses or thyromegaly. No jugular venous distension. Hematologic/Lymphatic No petechiae or purpura. No tender or palpable lymph nodes in the cervical or supraclavicular areas. Respiratory Lungs are clear to auscultation without rhonchi or wheezing. Cardiovascular Regular rate and rhythm of heart without murmurs,clicks, gallops or rubs. Abdomen Non-tender, non-distended, no masses or ascites. Good bowel sounds noted in all quads. No guarding or rebound tenderness. No pulsatile masses. Back/Spine Non-tender to palpation. Extremities No visible deformities, no cyanosis, clubbing or edema. Musculoskeletal No tenderness or swelling, normal range of motion without obvious weakness. Integumentary No rashes or lesions. Neurologic No sensory or motor deficits, normal cerebellar function, normal gait. Psychiatric Alert and oriented times three. Coherent speech. Verbalizes understanding of our discussions today. Laboratory:Test performed on Apr 16, 2020 14:05 PSA 0.050 ng/mL Impression: Prostatic adenocarcinoma, large volume, [place] score 3+4 bilaterally per TRUSP/biopsy done on 06/02/2019, PSA at the time of diagnosis was 71.[address] scan of abdomen pelvis done on 06/14/2019 showed no evidence of metastatic disease Bone scan done on 06/14/2019 showed no evidence of metastatic disease History of right renal stone status post ESWL Started on Zoladex on 07/04/2019 along with Casodex , Casodex was discontinued on August 14, 2019, patient was started on radiation therapy to prostate cancer on August 29, 19992009 to October 25, 2019, Now being treated with adjuvant therapy with Zoladex alone Plan: 1. Proceed with Zoladex today as planned. 2. PSA from today was reviewed in detail and discussed with Mr. Kong and a copy was given to him. He resulted at 0.050. His last PSA on January 15, 2020 was 0.088. 3. We will have him try Effexor ER 37.5 mg 1 tablet at at bedtime and may increase to 2 after 1 to 2 weeks if needed for hot flashes. 4. We will also call Yeceniamotil to [facility] to have on hand in case the Imodium [id number] does not control his diarrhea. He denies any hematochezia or recent antibiotic use. If this does not control his diarrhea we will need to do stools for C. difficile and ova and parasites. 5. We will plan to see him back in 3 months with CBC CMP, total testosterone and PSA. 6. His last bone scan was June 14, [address] of the chest abdomen pelvis with and without contrast was on 06/14/2019. 7. Mr. Kong was instructed to contact us in interim should questions or problems arise. Signed By: Tomy Roper-, AOCNP Jackelin Meier MD <<Signature on File>>
== END 2020-04-16 13:58 | disposition home or self-care (01) ==
PROVIDERS: Internal Medicine Hematology & Oncology; PCP Family Medicine; Visit Provider Nurse Practitioner
DX: C61 Malignant neoplasm of prostate (principal); Z87.442 Personal history of urinary calculi; Z92.3 Personal history of irradiation; Z79.818 Long term (current) use of other agents affecting estrogen receptors and estrogen levels; R19.7 Diarrhea, unspecified
CPT/HCPCS: 84153; 96372; 96402; 99214; J9202

== ENCOUNTER 2020-07-24 14:47 | Outpatient (CLI) | payer MEDICARE, MEDICAID, SELFPAY ==
[2020-07-24 15:26] LABS: Basophils % 0.7 %; Eosinophils # 0.4 10^3/uL (0.0-0.8); Eosinophils % 8.9 %; Hematocrit 43.7 % (42.0-52.0); Hemoglobin 14.6 g/dL (11.7-16.6); Lymphocytes # 0.8 10^3/uL (0.8-4.8); Lymphocytes % 19.1 %; Mean Corpuscular HGB Conc 33.4 g/dL (30.0-36.0); Mean Corpuscular Hemoglobin 30.5 pg (28.0-34.0); Mean Corpuscular Volume 91.2 fL (80-94); Mean Platelet Volume 9.9 fL (7.4-10.4); Monocytes # 0.4 10^3/uL (0.2-0.9); Monocytes % 8.9 %; Neutrophils # 2.48 10^3/uL (1.8-7.7); Neutrophils % 61.4 %; Nucleated Red Blood Cells % 0 %; Platelet Count 209 10^3/cmm (130-400); Red Blood Count 4.79 10^6/uL (4.1-5.3); Red Cell Distribution Width 12.8 % (12.1-15.1)
[2020-07-24] MEDS: lidocaine 1% INJ 20 mL INJECTION (15:57)
--- NOTE | 2020-07-24 16:01 | ONC FU_ITS ---
Dr. Meier follow up note Patient: Carmine Kong Unit #: [id number]: 1970 Dicatated By: Jackelin Meier M.D.Date of Visit:Jul 24, 2020 Onc Med Follow-up/Prog Note History of Present Illness: Mr. Kong is a 50-year-old gentleman with history of hematuria eventually diagnosed with right renal stone in 2016. At that time he underwent right ureteral stent and multiple ESWL. During follow-up, he was noted to have elevated PSA and on 06/02/2019 his PSA was 71.94 with abnormal KARI e.g. distinct firmness on the right apex. On 06/02/2019, he underwent ultrasound guided biopsy and sonogram showed hypoechoic lesion, large area of right side of prostate extending what appears to be extraprostatic toward the base. Also significant portion of peripheral zone appeared hypoechoic. Multiple biopsies were obtained, 4 on the left side and 6 on the right, final pathology report came back large volume [place] 3+4 prostate adenocarcinoma bilaterally, PSA was 71.94 at the time of diagnosis Mr Kong was started on Bicalutamide 50 mg by mouth daily by Dr. Loera. He was also started on Zoladex on 07/04/2019. CT scan of abdomen pelvis done on 06/14/2019 showed no evidence of metastatic disease no sclerotic bone lesions Bone scan done on 06/14/2019 showed no evidence of osseous metastatic disease. He was treated with combined radiation therapy and ADT with Zoladex, Completed radiation therapy on October 25, 2019 and he discontinued Casodex on 08/14/2019. He is continued on adjuvant therapy with Zoladex every 3 months. He has tolerated that well. Came for follow-up, denies any specific complaint except off and on fresh blood per rectum since last month. Patient denies any diarrhea or constipation, denies any pain in the anal area, but off and on mild, self-limiting lower abdominal pain/discomfort, denies any nausea or vomiting. No weight loss, no jaundice, occasionally hot flashes otherwise tolerating 3 monthly Zoladex well Medications: Cholecalciferol 1 Tablet (of 1000 Units) Oral daily, Claritin 1 Tablet (of 10 mg) Oral daily, Diflunisal 1 Tablet (of 500 mg) Oral q 12 hours, Nortriptyline HCl 1 Capsule (of 25 mg) Oral at bedtime, Omeprazole 1 Capsule (of 20 mg) Capsule Delayed Release Oral b.i.d., Oxybutynin Chloride 1 Tablet (of 5 mg) Oral daily, Potassium Citrate ER 1 Tablet (of 10 meq ) Tablet, controlled release Oral b.i.d., ProAir HFA 1 Puff(s) (of 108 (90 base) mcg/act) Aerosol, solution Inhalation q 3 hours, Propranolol HCl 1 Tablet (of 20 mg) Oral b.i.d., traMADol HCl Tablet Oral PRN, Tylenol with Codeine #3 1 (300-30 mg) Tablet Oral b.i.d. PRN, Zolpidem Tartrate 1 Tablet (of 5 mg) Oral at bedtime Allergies: No Known Allergies. Review of Systems: Review of Systems is not available for this patient. Vital Signs: Performed on Jul 24, 2020 15:35 Height - 68.00 in Weight - 204.2 lbs (LOW) BSA - 2.06 sq.m BMI - 31.05 (HIGH) Temperature - 97.8 F (LOW) Pulse - 84 /min Respiration - 18 /min BP - 139/85 mm(hg) O2 Sat - 95 % (LOW) Pain - 5 Performance Status: 0 - Fully active, able to carry on all predisease activities without restrictions. (ECOG) Physical Examination: ENMT - No mouth sores, no thrush, no jaundice, Respiratory - Lungs are clear to auscultation, Cardiovascular - Regular rate and rhythm of heart, Abdomen - Soft, bowel sounds present, No rebound tenderness no mass palpable, Extremities - No visible edema. Lab/Imaging: Test performed on Apr 16, 2020 14:05 PSA 0.050 ng/mL Impression: Prostatic adenocarcinoma, large volume, [place] score 3+4 bilaterally per TRUSP/biopsy done on 06/02/2019, PSA at the time of diagnosis was 71.[address] scan of abdomen pelvis done on 06/14/2019 showed no evidence of metastatic disease Bone scan done on 06/14/2019 showed no evidence of metastatic disease History of right renal stone status post ESWL Started on Zoladex on 07/04/2019 along with Casodex , Casodex was discontinued on August 14, 2019, patient was started on radiation therapy to prostate cancer on August 29, 19992009 to October 25, 2019, Now being treated with adjuvant therapy with Zoladex alone Plan: Discussed with patient regarding his labs white blood count 4 hemoglobin 14.6 crit 43.7 platelets 209,000, PSA is pending Clinically, patient doing well with no new signs symptoms suggestive of recurrence of prostate cancer, tolerating 3 monthly Zoladex well, will proceed with his next 3 monthly dose of Zoladex today and then he will return to clinic in 3 months with a PSA. As far as off and on, mild fresh blood per rectum is concerned, could be due to hemorrhoids but patient never had colonoscopy done before and considering his age e.g. above 50, will consider refer to GI for evaluation for possible endoscopic evaluation. Signed By: Jackelin Meier M.D. <<Signature on File>>
[2020-07-24 16:09] LABS: Prostate Specific Antigen 0.027 ng/mL (0-4); Testosterone Total 2.5 ng/dL (193-740)
[2020-07-24] MEDS: goserelin acetate 10.8 mg Implant IM (16:15)
[2020-07-24 16:20] LABS: Alanine Aminotransferase 31 U/L (0-41); Albumin Level 4.7 g/dL (3.5-5.2); Alkaline Phosphatase 74 IU/L (40-130); Aspartate Amino Transferase 19 U/L (0-40); Blood Urea Nitrogen 15 mg/dL (6-20); Calcium 9.9 mg/dL (8.5-10.5); Carbon Dioxide 28 mmol/L (22-29); Chloride 97 mmol/L (98-107); Globulin 2.8 g/dL (1.3-4.6); Glomerular Filtration Rate 101.9 mL/min (90-130); Glucose 132 mg/dL (65-115); Osmolality Calculated 289 mOsm/kg (285-295); Sodium 138 mmol/L (136-145); Total Bilirubin 0.6 mg/dL (0.15-1.2); Total Protein 7.5 g/dL (6.6-8.7)
== END 2020-07-24 14:48 | disposition home or self-care (01) ==
LOC: ONCMED 14:49
PROVIDERS: PCP Family Medicine; Visit Provider Internal Medicine Hematology & Oncology
DX: C61 Malignant neoplasm of prostate (principal); Z79.818 Long term (current) use of other agents affecting estrogen receptors and estrogen levels
CPT/HCPCS: 36415; 80053; 84153; 84403; 85025; 96402; 99214; J9202

== ENCOUNTER → 2020-08-23 14:04 | Outpatient (BNVA) | payer MEDICARE, MEDICAID, SELFPAY | PROVIDERS: PCP Family Medicine; Visit Provider Surgery | DX: Z01.812 Encounter for preprocedural laboratory examination (principal) | CPT/HCPCS: 87635 ==

== ENCOUNTER → 2020-10-04 12:43 | Outpatient (BNVA) | payer MEDICARE, MEDICAID, SELFPAY | PROVIDERS: PCP Family Medicine; Visit Provider Surgery | DX: K92.1 Melena (principal); Z11.52 Encounter for screening for COVID-19 | CPT/HCPCS: 87635 ==

== ENCOUNTER 2020-10-09 07:50 | Day surgery (SDC) | payer MEDICARE, MEDICAID, SELFPAY ==
[2020-10-07 10:39] VITALS: BMI 30.2
--- NOTE | 2020-10-09 08:14 | W.PM.OPSFHP ---
Same Day Surgery H&P Indication for Procedure/HPI DATE OF PROCEDURE: October 09, 2020 CHIEF COMPLAINT/INDICATIONFOR SURGICAL PROCEDURE: Blood in stool PREOP DIAGNOSIS: Blood in stool PLANNED PROCEDRUE: Operation Date: 10/09/20 09:15 Proposed Procedures p Colonoscopy 45292 K92.1(Not Applicable) - Srinivasan Minaya MD This is a pleasant 50 years old gentleman with history of prostate cancer. Patient had positive blood in stool and denies history of colon cancer or nonintentional weight loss. Patient was referred to me for colonoscopy and he reports that he had a colonoscopy back in 2019 and was reported as normal. Interim history 10/09/2020 Patient comes today for colonoscopy. ROS All systems have been reviewed negative except as per the above or per problem list Medications/Allergies* Home Medications Medication Instructions Recorded Confirmed Type albuterol sulfate 90 mcg/actuation 2 puff INHALATION Q6H PRN 12/11/19 10/07/20 History aerosol inhaler bicalutamide 50 mg tablet 50 mg PO DAILY 12/11/19 10/07/20 History cholecalciferol (vitamin D3) 25 25 mcg PO DAILY 12/11/19 10/07/20 History mcg (1,000 unit) capsule diflunisal 500 mg tablet 500 mg PO Q12H 12/11/19 10/07/20 History loratadine 10 mg tablet 10 mg PO DAILY 12/11/19 10/07/20 History nortriptyline 25 mg capsule 25 mg PO DAILY 12/11/19 10/07/20 History omeprazole 20 mg capsule,delayed 20 mg PO BID 12/11/19 10/07/20 History release potassium citrate 10 mEq (1,080 2,160 mg PO BID 12/11/19 10/09/20 History mg) tablet,extended release zolpidem 5 mg tablet 5 mg PO DAILY 12/11/19 10/07/20 History Allergies/Adverse Reactions Allergy/AdvReac Type Severity Reaction Status Date / Time No Known Allergies Allergy Verified 10/09/20 08:43 Pertinent History/Comorbid Conditions* Medical History (Updated 08/06/20 @ 15:39 by Srinivasan Minaya MD) Prostate cancer Urolithiasis Vitamin D deficiency Surgical History (Updated 12/11/19 @ 10:46 by Jp Loera MD) Hx of inguinal hernia repair Hx of prostate biopsy Family History (Updated 12/11/19 @ 10:24 by KENRICK Barry) Diabetes Mother CAD (coronary artery disease) Father Social History Smoking and tobacco status: never smoked Alcohol intake: unknown Adopted: No Caregiver/support person: No Lives independently: No Household members: spouse Marital status: Current occupational status: disabled History of recent travel: No Current gender identity: Male Pertinent Exam Findings alert, oriented x 3, clear to auscultation bilaterally, regular rate & rhythm and procedure specific exam findings (Abdominal examination nontender nondistended soft, obese) Recommendations Surgery/Procedure today (Colonoscopy with possible biopsy and possible polypectomy) Other Plans: Plan of care; After thorough history and physical examination and reviewing the chart, plan to perform diagnostic colonoscopy. I discussed with the patient in details the risks,benefits,alternatives and indications.The risk of aspiration, bleeding, soft tissue injury, perforation of the colon and other potential concomitant complications were explained to the patient in details,also the potential need for Laproscoy/Laparotomy to repair any related complications including but not limited to colectomy and or Closotomy.The patient understood this well and did agree to proceed. Rationale was carefully and clearly discussed with the patient.Appropriate informed consent have been reviewed and signed All questions have been answered and all concerns have been addressed to patient's satisfaction. 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
--- NOTE | 2020-10-09 08:20 | ANES.PREANE2 ---
Pre-Anesthetic Assessment Pre-Anesthetic Assessment: Height/Weight: Height 1.73 m Weight 90.265 kg Preop Diagnosis: Blood in stool Proposed Procedure: Operation Date: 10/09/20 09:15 Proposed Procedures p Colonoscopy 22793 K92.1(Not Applicable) - Srinivasan Minaya MD Was Beta [place] taken within 24 hours: N/A Social: Social History: No alcohol and No tobacco Exam: Pre-Anes Outpt Exam: alert, oriented x 3, clear to auscultation bilaterally and regular rate & rhythm Airway: Submandibular: WNL Cervical ROM: WNL MP: 2 Additional comments: Missing teeth Pulmonary: Pulmonary: Asthma CV/HEM: CV/HEM: HTN GI: GI: GERD Metabolic: Metabolic: Morbid obesity Anesthetic Plan: ASA status: 3 Anesthesia: MAC Risk of > 500 ml blood loss (7ml/kg in children): No PFSH Anesthesia PFSH: Medical History Prostate cancer Urolithiasis Vitamin D deficiency Surgical History Hx of inguinal hernia repair Hx of prostate biopsy Family History Father CAD (coronary artery disease) Mother Diabetes Social History Smoking and tobacco status: never smoked Alcohol intake: unknown Adopted: No Caregiver/support person: No Lives independently: No Household members: spouse Marital status: Current occupational status: disabled History of recent travel: No Current gender identity: Male Data Anesthesia Cardiac Studies: No Data to Display
[2020-10-09 08:30] VITALS: BP 143/76; PULSE 77; RESP 18; TEMP 36.6; O2SAT 98
[2020-10-09] MEDS: sodium chloride 0.9% 1,000 ML 30 ML IV (08:43)
[2020-10-09 09:02] VITALS: BP 114/64; PULSE 86; RESP 16; TEMP 36.1; O2SAT 93
--- NOTE | 2020-10-09 14:49 | ANE.PACU2 ---
Inpatient post-anesthesia follow up: Airway intact: Yes Vital signs: Temperature 97 F Pulse Rate 86 Respiratory Rate 16 Blood Pressure 114/64 Pulse Oximetry 93 Oxygen Delivery Me thod Room Air Oxygen Flow Rate Fraction of Inspir ed Oxygen Hydration adequate: Yes Nausea and vomiting: No Pain level: 1 Mental status: Baseline
== END 2020-10-09 09:36 | disposition home or self-care (01) ==
PROVIDERS: PCP Family Medicine; Visit Provider Surgery
PROC: 0DJD8ZZ Inspection of Lower Intestinal Tract, Via Natural or Artificial Opening Endoscopic (ICD-10-PCS; CPT 45378; principal; 2020-10-09 09:15)
DX: K92.1 Melena (principal); Z85.46 Personal history of malignant neoplasm of prostate; E55.9 Vitamin D deficiency, unspecified; Q27.33 Arteriovenous malformation of digestive system vessel; I10 Essential (primary) hypertension; J45.909 Unspecified asthma, uncomplicated; K21.9 Gastro-esophageal reflux disease without esophagitis; E66.01 Morbid (severe) obesity due to excess calories; Z68.30 Body mass index [BMI] 30.0-30.9, adult
CPT/HCPCS: 45378; J2704; J7030

== ENCOUNTER 2020-10-30 10:59 | Outpatient (CLI) | payer MEDICARE, MEDICAID, SELFPAY ==
[2020-10-30 12:39] LABS: Prostate Specific Antigen 0.021 ng/mL (0-4)
[2020-10-30] MEDS: lidocaine 1% INJ 20 mL INJECTION (13:20)
[2020-10-30] MEDS: goserelin acetate 10.8 mg Implant IM (13:42)
--- NOTE | 2020-10-30 17:07 | ONC FU_ITS ---
Dr. Meier follow up note Patient: Carmine Kong Unit #: [id number]: 1970 Dicatated By: Jackelin Meier M.D.Date of Visit:Oct 30, 2020 Onc Med Follow-up/Prog Note History of Present Illness: Mr. Kong is a 50-year-old gentleman with history of hematuria eventually diagnosed with right renal stone in 2016. At that time he underwent right ureteral stent and multiple ESWL. During follow-up, he was noted to have elevated PSA and on 06/02/2019 his PSA was 71.94 with abnormal KARI e.g. distinct firmness on the right apex. On 06/02/2019, he underwent ultrasound guided biopsy and sonogram showed hypoechoic lesion, large area of right side of prostate extending what appears to be extraprostatic toward the base. Also significant portion of peripheral zone appeared hypoechoic. Multiple biopsies were obtained, 4 on the left side and 6 on the right, final pathology report came back large volume Otilio 3+4 prostate adenocarcinoma bilaterally, PSA was 71.94 at the time of diagnosis Mr Kong was started on Bicalutamide 50 mg by mouth daily by Dr. Loera. He was also started on Zoladex on 07/04/2019. CT scan of abdomen pelvis done on 06/14/2019 showed no evidence of metastatic disease no sclerotic bone lesions Bone scan done on 06/14/2019 showed no evidence of osseous metastatic disease. He was treated with combined radiation therapy and ADT with Zoladex, Completed radiation therapy on October 25, 2019 and he discontinued Casodex on 08/14/2019. He is continued on adjuvant therapy with Zoladex every 3 months. He has tolerated that well. Came for follow-up, denies any specific complaints,Except generalized weakness and fatigue. no fever chills, no nausea or vomiting, no diarrhea constipation , No dysuria or hematuria, no new bony pains, occasionally hot flashes otherwise tolerating Zoladex well Medications: Cholecalciferol 1 Tablet (of 1000 Units) Oral daily, Claritin 1 Tablet (of 10 mg) Oral daily, Diflunisal 1 Tablet (of 500 mg) Oral q 12 hours, Nortriptyline HCl 1 Capsule (of 25 mg) Oral at bedtime, Omeprazole 1 Capsule (of 20 mg) Capsule Delayed Release Oral b.i.d., Oxybutynin Chloride 1 Tablet (of 5 mg) Oral daily, Potassium Citrate ER 1 Tablet (of 10 meq ) Tablet, controlled release Oral b.i.d., ProAir HFA 1 Puff(s) (of 108 (90 base) mcg/act) Aerosol, solution Inhalation q 3 hours, Propranolol HCl 1 Tablet (of 20 mg) Oral b.i.d., traMADol HCl Tablet Oral PRN, Tylenol with Codeine #3 1 (300-30 mg) Tablet Oral b.i.d. PRN, Zolpidem Tartrate 1 Tablet (of 5 mg) Oral at bedtime Allergies: No Known Allergies. Review of Systems: Review of Systems is not available for this patient. Vital Signs: Performed on Oct 30, 2020 12:51 Height - 68.00 in Weight - 200.4 lbs (LOW) BSA - 2.05 sq.m BMI - 30.47 (HIGH) Temperature - 98.4 F Pulse - 86 /min Respiration - 18 /min BP - 118/69 mm(hg) O2 Sat - 94 % (LOW) Pain - 5 Performance Status: 0 - Fully active, able to carry on all predisease activities without restrictions. (ECOG) Physical Examination: ENMT - No mouth sores, no thrush, no jaundice, Respiratory - Lungs are clear to auscultation, Cardiovascular - Regular rate and rhythm of heart, Abdomen - Soft, bowel sounds present, Extremities - No visible edema. Lab/Imaging: Test performed on Jul 24, 2020 15:00 Sodium 138 mmol/L Testosterone, Total 2.5 ng/dL Potassium 3.0 mmol/L Chloride 97 mmol/L CO2 28 mmol/L Anion Gap 16.0 BUN 15 mg/dL Creatinine 0.8 mg/dL Cr Clearance (Est) 143.1200 mL/min eGFR 101.9 mL/min Glucose 132 mg/dL Osmolality - Calculated 289 mOsm/kg Calcium 9.9 mg/dL Protein, Total 7.5 g/dL Albumin 4.7 g/dL Globulin 2.8 g/dL Bilirubin, Total 0.6 mg/dL ALT (SGPT) 31 U/L AST (SGOT) 19 U/L Alkaline Phosphatase 74 IU/L WBC 4.0 10 3/uL RBC 4.79 10 6/uL HGB 14.6 g/dL HCT 43.7 % MCV 91.2 fL MCH 30.5 pg MCHC 33.4 g/dL RDW 12.8 % Platelet Count 209 10 3/cmm MPV 9.9 fL Neutrophils 2.48 10 3/uL Lymphocytes 0.8 10 3/uL Monocytes 0.4 10 3/uL Eosinophils 0.4 10 3/uL Basophils 0.0 10 3/uL Neutrophil % 61.4 % Lymphocyte % 19.1 % Monocyte % 8.9 % Eosinophil % 8.9 % Basophils % 0.7 % NRBC % 0 % PSA 0.027 ng/mL Impression: Prostatic adenocarcinoma, large volume, Otilio score 3+4 bilaterally per TRUSP/biopsy done on 06/02/2019, PSA at the time of diagnosis was 71.[address] scan of abdomen pelvis done on 06/14/2019 showed no evidence of metastatic disease Bone scan done on 06/14/2019 showed no evidence of metastatic disease History of right renal stone status post ESWL Started on Zoladex on 07/04/2019 along with Casodex , Casodex was discontinued on August 14, 2019, patient was started on radiation therapy to prostate cancer on August 29, 19992009 to October 25, 2019, Now being treated with adjuvant therapy with Zoladex alone Plan: Discussed with patient regarding his labs PSA 0.021 compared to 0.027 Clinically, patient doing well no new signs symptoms history of disease progression, his follow-up PSA continue to improve still subzero, tolerating Zoladex well but with expected side effect e.g. off and on hot flashes and generalized weakness and fatigue Other possibility for generalized weakness and fatigue could be underlying sleep apnea considering his abdominal girth, will recommend PMD to consider a sleep study to rule out sleep apnea, if confirmed patient may benefit from CPAP machine In the meantime we will proceed with next dose 3 monthly of Zoladex today and return to clinic in 3 months with PSA and for Zoladex Signed By: Jackelin Meier M.D. <<Signature on File>>
== END 2020-10-30 11:00 | disposition home or self-care (01) ==
LOC: ONCMED 11:02
PROVIDERS: PCP Family Medicine; Visit Provider Internal Medicine Hematology & Oncology
DX: C61 Malignant neoplasm of prostate (principal); R97.20 Elevated prostate specific antigen [PSA]; C79.51 Secondary malignant neoplasm of bone; Z79.818 Long term (current) use of other agents affecting estrogen receptors and estrogen levels; Z79.899 Other long term (current) drug therapy
CPT/HCPCS: 36415; 84153; 96402; 99214; J9202

== ENCOUNTER 2021-01-22 13:06 | Outpatient (CLI) | payer MEDICARE, MEDICAID, SELFPAY ==
[2021-01-22 14:43] LABS: Prostate Specific Antigen 0.012 ng/mL (0-4)
[2021-01-22] MEDS: goserelin acetate 10.8 mg Implant SUBCUT (15:27)
--- NOTE | 2021-01-23 08:50 | ONC FU_ITS ---
Dr. Meier follow up note Patient: Carmine Kong Unit #: [id number]: 1970 Dicatated By: Jackelin Meier M.D.Date of Visit:Jan 22, 2021 Onc Med Follow-up/Prog Note History of Present Illness: Mr. Kong is a 50-year-old gentleman with history of hematuria eventually diagnosed with right renal stone in 2016. At that time he underwent right ureteral stent and multiple ESWL. During follow-up, he was noted to have elevated PSA and on 06/02/2019 his PSA was 71.94 with abnormal KARI e.g. distinct firmness on the right apex. On 06/02/2019, he underwent ultrasound guided biopsy and sonogram showed hypoechoic lesion, large area of right side of prostate extending what appears to be extraprostatic toward the base. Also significant portion of peripheral zone appeared hypoechoic. Multiple biopsies were obtained, 4 on the left side and 6 on the right, final pathology report came back large volume Otilio 3+4 prostate adenocarcinoma bilaterally, PSA was 71.94 at the time of diagnosis Mr Kong was started on Bicalutamide 50 mg by mouth daily by Dr. Loera. He was also started on Zoladex on 07/04/2019. CT scan of abdomen pelvis done on 06/14/2019 showed no evidence of metastatic disease no sclerotic bone lesions Bone scan done on 06/14/2019 showed no evidence of osseous metastatic disease. He was treated with combined radiation therapy and ADT with Zoladex, Completed radiation therapy on October 25, 2019 and he discontinued Casodex on 08/14/2019. He is continued on adjuvant therapy with Zoladex every 3 months. He has tolerated that well. Came for came for follow-up, denies any specific complaints stepped off and on hot flashes otherwise no fever chills, no nausea or vomiting, no diarrhea constipation, no hematuria or dysuria, no new bony pains, appetite is good, tolerating 3 monthly Zoladex well otherwise Medications: Cholecalciferol 1 Tablet (of 1000 Units) Oral daily, Claritin 1 Tablet (of 10 mg) Oral daily, Diflunisal 1 Tablet (of 500 mg) Oral q 12 hours, Nortriptyline HCl 1 Capsule (of 25 mg) Oral at bedtime, Omeprazole 1 Capsule (of 20 mg) Capsule Delayed Release Oral b.i.d., Oxybutynin Chloride 1 Tablet (of 5 mg) Oral daily, Potassium Citrate ER 1 Tablet (of 10 meq ) Tablet, controlled release Oral b.i.d., ProAir HFA 1 Puff(s) (of 108 (90 base) mcg/act) Aerosol, solution Inhalation q 3 hours, Propranolol HCl 1 Tablet (of 20 mg) Oral b.i.d., traMADol HCl Tablet Oral PRN, Tylenol with Codeine #3 1 (300-30 mg) Tablet Oral b.i.d. PRN, Zolpidem Tartrate 1 Tablet (of 5 mg) Oral at bedtime Allergies: No Known Allergies. Review of Systems: Review of Systems is not available for this patient. Vital Signs: Performed on Jan 22, 2021 15:14 Height - 68.00 in Weight - 201.0 lbs (HIGH) BSA - 2.05 sq.m BMI - 30.56 (HIGH) Temperature - 98.1 F (LOW) Pulse - 76 /min Respiration - 19 /min BP - 140/80 mm(hg) O2 Sat - 98 % Pain - 0 Performance Status: 0 - Fully active, able to carry on all predisease activities without restrictions. (ECOG) Physical Examination: ENMT - No mouth sores no thrush, no jaundice no lymphadenopathy, no, Respiratory - Lungs are clear to auscultation, Cardiovascular - Regular rate and rhythm of heart, Abdomen - Soft, bowel sounds present, Extremities - No visible edema. Lab/Imaging: Most recent lab results are not available for this patient. Impression: Prostatic adenocarcinoma, large volume, Otilio score 3+4 bilaterally per TRUSP/biopsy done on 06/02/2019, PSA at the time of diagnosis was 71.[address] scan of abdomen pelvis done on 06/14/2019 showed no evidence of metastatic disease Bone scan done on 06/14/2019 showed no evidence of metastatic disease History of right renal stone status post ESWL Started on Zoladex on 07/04/2019 along with Casodex , Casodex was discontinued on August 14, 2019, patient was started on radiation therapy to prostate cancer on August 29, 19992009 to October 25, 2019, Now being treated with adjuvant therapy with Zoladex alone Plan: Discussed with patient regarding his labs his PSA is 0.012 compared to 0.021 on October 30, 2020 Clinically, patient is doing well with no new signs symptom suggestive of disease progression, tolerating 3 monthly Zoladex well but with expected side effects of easy off and on hot flashes and mild fatigue, patient was advised to maintain active lifestyle and regular exercise and then will proceed with his next 3 monthly dose of Zoladex today and then he will return to clinic in 3 months with PSA and for next dose of Zoladex. Signed By: Jackelin Meier M.D. <<Signature on File>>
== END 2021-01-22 13:07 | disposition home or self-care (01) ==
LOC: ONCMED 13:09
PROVIDERS: PCP Family Medicine; Visit Provider Internal Medicine Hematology & Oncology
DX: C61 Malignant neoplasm of prostate (principal); Z79.811 Long term (current) use of aromatase inhibitors; Z87.442 Personal history of urinary calculi; Z92.3 Personal history of irradiation
CPT/HCPCS: 36415; 84153; 96372; 96402; 99215; J9202

== ENCOUNTER → 2021-02-04 13:56 | Outpatient (BNVA) | payer MEDICARE, MEDICAID, SELFPAY | PROVIDERS: PCP Family Medicine; Referring Provider Family Medicine; Visit Provider Podiatrist Foot & Ankle Surgery | DX: M79.673 Pain in unspecified foot (principal); E11.42 Type 2 diabetes mellitus with diabetic polyneuropathy; M20.41 Other hammer toe(s) (acquired), right foot; M20.42 Other hammer toe(s) (acquired), left foot; M21.611 Bunion of right foot; M21.612 Bunion of left foot | CPT/HCPCS: 73630 ==

== ENCOUNTER 2021-04-24 13:31 | Outpatient (CLI) | payer MEDICARE, MEDICAID, SELFPAY ==
[2021-04-24 15:17] LABS: Prostate Specific Antigen 0.006 ng/mL (0-4)
[2021-04-24] MEDS: lidocaine 1% INJ 20 mL INJECTION (15:50)
[2021-04-24] MEDS: goserelin acetate 10.8 mg Implant SUBCUT (16:00)
--- NOTE | 2021-04-24 16:57 | ONC FU_ITS ---
Dr. Meier follow up note Patient: Carmine Kong Unit #: [id number]: 1970 Dicatated By: Jackelin Meier M.D.Date of Visit:Apr 24, 2021 Onc Med Follow-up/Prog Note History of Present Illness: Mr. Kong is a 51-year-old gentleman with history of hematuria eventually diagnosed with right renal stone in 2016. At that time he underwent right ureteral stent and multiple ESWL. During follow-up, he was noted to have elevated PSA and on 06/02/2019 his PSA was 71.94 with abnormal KARI e.g. distinct firmness on the right apex. On 06/02/2019, he underwent ultrasound guided biopsy and sonogram showed hypoechoic lesion, large area of right side of prostate extending what appears to be extraprostatic toward the base. Also significant portion of peripheral zone appeared hypoechoic. Multiple biopsies were obtained, 4 on the left side and 6 on the right, final pathology report came back large volume Otilio 3+4 prostate adenocarcinoma bilaterally, PSA was 71.94 at the time of diagnosis Mr Kong was started on Bicalutamide 50 mg by mouth daily by Dr. Loera. He was also started on Zoladex on 07/04/2019. CT scan of abdomen pelvis done on 06/14/2019 showed no evidence of metastatic disease no sclerotic bone lesions Bone scan done on 06/14/2019 showed no evidence of osseous metastatic disease. He was treated with combined radiation therapy and ADT with Zoladex, Completed radiation therapy on October 25, 2019 and he discontinued Casodex on 08/14/2019. He is continued on adjuvant therapy with Zoladex every 3 months. He has tolerated that well. Came for follow-up, denies any specific complaints, no fever chills, no nausea or vomiting, no diarrhea constipation, occasionally hot flashes otherwise tolerating Zoladex well Medications: Cholecalciferol 1 Tablet (of 1000 Units) Oral daily, Claritin 1 Tablet (of 10 mg) Oral daily, Diflunisal 1 Tablet (of 500 mg) Oral q 12 hours, Nortriptyline HCl 1 Capsule (of 25 mg) Oral at bedtime, Omeprazole 1 Capsule (of 20 mg) Capsule Delayed Release Oral b.i.d., Oxybutynin Chloride 1 Tablet (of 5 mg) Oral daily, Potassium Citrate ER 1 Tablet (of 10 meq ) Tablet, controlled release Oral b.i.d., ProAir HFA 1 Puff(s) (of 108 (90 base) mcg/act) Aerosol, solution Inhalation q 3 hours, Propranolol HCl 1 Tablet (of 20 mg) Oral b.i.d., traMADol HCl Tablet Oral PRN, Tylenol with Codeine #3 1 (300-30 mg) Tablet Oral b.i.d. PRN, Zolpidem Tartrate 1 Tablet (of 5 mg) Oral at bedtime Allergies: No Known Allergies. Review of Systems: Review of Systems is not available for this patient. Vital Signs: Performed on Apr 24, 2021 15:49 Height - 68.00 in Weight - 204 lbs (HIGH) BSA - 2.06 sq.m BMI - 31.02 (HIGH) Temperature - 97.8 F (LOW) Pulse - 94 /min Respiration - 18 /min BP - 132/77 mm(hg) O2 Sat - 95 % (LOW) Pain - 5 Fatigue - 0 Performance Status: 0 - Fully active, able to carry on all predisease activities without restrictions. (ECOG) Physical Examination: ENMT - No mouth sores, no thrush, no jaundice, Respiratory - Lungs are clear to auscultation, Cardiovascular - Regular rate and rhythm of heart, Abdomen - Soft, bowel sounds present, Extremities - No visible edema. Lab/Imaging: Most recent lab results are not available for this patient. Impression: Prostatic adenocarcinoma, large volume, Otilio score 3+4 bilaterally per TRUSP/biopsy done on 06/02/2019, PSA at the time of diagnosis was 71.[address] scan of abdomen pelvis done on 06/14/2019 showed no evidence of metastatic disease Bone scan done on 06/14/2019 showed no evidence of metastatic disease History of right renal stone status post ESWL Started on Zoladex on 07/04/2019 along with Casodex , Casodex was discontinued on August 14, 2019, patient was started on radiation therapy to prostate cancer on August 29, 19992009 to October 25, 2019, Now being treated with adjuvant therapy with Zoladex alone Plan: Discussed with patient regarding his labs his PSA is 0.006 compared to 0.012 earlier Clinically, patient doing well with no new signs symptoms history of recurrence of disease, his PSA continue to improve while on 3 monthly Zoladex, will proceed with next dose today and then return to clinic in 3 months with PSA and for Zoladex Signed By: Jackelin Meier M.D. <<Signature on File>>
== END 2021-04-24 13:32 | disposition home or self-care (01) ==
PROVIDERS: PCP Family Medicine; Visit Provider Internal Medicine Hematology & Oncology
DX: Z51.11 Encounter for antineoplastic chemotherapy (principal); C61 Malignant neoplasm of prostate; R97.20 Elevated prostate specific antigen [PSA]; Z87.442 Personal history of urinary calculi; Z79.899 Other long term (current) drug therapy
CPT/HCPCS: 36415; 84153; 96372; 96402; 99215; J9202

== ENCOUNTER 2021-07-28 12:08 | Outpatient (CLI) | payer MEDICARE, MEDICAID, SELFPAY ==
[2021-07-28 13:28] LABS: Prostate Specific Antigen 0.018 ng/mL (0-4)
[2021-07-28] MEDS: lidocaine 1% INJ 20 mL INJECTION (13:55)
[2021-07-28] MEDS: goserelin acetate 10.8 mg Implant SUBCUT (14:05)
--- NOTE | 2021-07-28 15:06 | ONC FU_ITS ---
Dr. Meier follow up note Patient: Carmine Kong Unit #: [id number]: 1970 Dicatated By: Jackelin Meier M.D.Date of Visit:Jul 28, 2021 Onc Med Follow-up/Prog Note History of Present Illness: Mr. Kong is a 51-year-old gentleman with history of hematuria eventually diagnosed with right renal stone in 2016. At that time he underwent right ureteral stent and multiple ESWL. During follow-up, he was noted to have elevated PSA and on 06/02/2019 his PSA was 71.94 with abnormal KARI e.g. distinct firmness on the right apex. On 06/02/2019, he underwent ultrasound guided biopsy and sonogram showed hypoechoic lesion, large area of right side of prostate extending what appears to be extraprostatic toward the base. Also significant portion of peripheral zone appeared hypoechoic. Multiple biopsies were obtained, 4 on the left side and 6 on the right, final pathology report came back large volume Otilio 3+4 prostate adenocarcinoma bilaterally, PSA was 71.94 at the time of diagnosis Mr Kong was started on Bicalutamide 50 mg by mouth daily by Dr. Loera. He was also started on Zoladex on 07/04/2019. CT scan of abdomen pelvis done on 06/14/2019 showed no evidence of metastatic disease no sclerotic bone lesions Bone scan done on 06/14/2019 showed no evidence of osseous metastatic disease. He was treated with combined radiation therapy and ADT with Zoladex, Completed radiation therapy on October 25, 2019 and he discontinued Casodex on 08/14/2019. He is continued on adjuvant therapy with Zoladex every 3 months. He has tolerated that well. Came for follow-up, denies any specific complaints except off and on some mild blood in the stool, as per patient in the recent past he underwent colonoscopy by Dr. Gar, which showed no abnormality but hemorrhoids. Otherwise no dysuria or hematuria, no new bony pains, no nausea or vomiting, no diarrhea or constipation, occasionally hot flashes otherwise tolerating 3 monthly Zoladex well Medications: Cholecalciferol 1 Tablet (of 1000 Units) Oral daily, Claritin 1 Tablet (of 10 mg) Oral daily, Diflunisal 1 Tablet (of 500 mg) Oral q 12 hours, Nortriptyline HCl 1 Capsule (of 25 mg) Oral at bedtime, Omeprazole 1 Capsule (of 20 mg) Capsule Delayed Release Oral b.i.d., Oxybutynin Chloride 1 Tablet (of 5 mg) Oral daily, Potassium Citrate ER 1 Tablet (of 10 meq ) Tablet, controlled release Oral b.i.d., ProAir HFA 1 Puff(s) (of 108 (90 base) mcg/act) Aerosol, solution Inhalation q 3 hours, Propranolol HCl 1 Tablet (of 20 mg) Oral b.i.d., traMADol HCl Tablet Oral PRN, Tylenol with Codeine #3 1 (300-30 mg) Tablet Oral b.i.d. PRN, Zolpidem Tartrate 1 Tablet (of 5 mg) Oral at bedtime Allergies: No Known Allergies. Review of Systems: Review of Systems is not available for this patient. Vital Signs: Performed on Jul 28, 2021 13:45 Height - 68.00 in Weight - 216.0 lbs (HIGH) BSA - 2.11 sq.m BMI - 32.84 (HIGH) Temperature - 98.3 F (LOW) Pulse - 86 /min Respiration - 16 /min BP - 149/83 mm(hg) (HIGH) O2 Sat - 94 % (LOW) Pain - 3 Fatigue - 9 Performance Status: 0 - Fully active, able to carry on all predisease activities without restrictions. (ECOG) Physical Examination: ENMT - No mouth sores, no thrush, no jaundice, Respiratory - Lungs are clear to auscultation, Cardiovascular - Regular rate and rhythm of heart, Abdomen - Soft, bowel sounds present, Extremities - No visible edema. Lab/Imaging: Most recent lab results are not available for this patient. Impression: Prostatic adenocarcinoma, large volume, [place] score 3+4 bilaterally per TRUSP/biopsy done on 06/02/2019, PSA at the time of diagnosis was 71.[address] scan of abdomen pelvis done on 06/14/2019 showed no evidence of metastatic disease Bone scan done on 06/14/2019 showed no evidence of metastatic disease History of right renal stone status post ESWL Started on Zoladex on 07/04/2019 along with Casodex , Casodex was discontinued on August 14, 2019, patient was started on radiation therapy to prostate cancer on August 29, 19992009 to October 25, 2019, Now being treated with adjuvant therapy with Zoladex alone Plan: Discussed with patient regarding his labs PSA 0.018 compared to 0.006 previously Clinically, patient doing well with no new signs symptoms such of recurrence of disease his follow-up PSA shows slight increase, will continue to monitor in the meantime we will proceed with 3 monthly dose of Zoladex today then he will return to clinic in 3 months with PSA and for next dose of Zoladex As far as off-and-on mild blood in his stool is concerned, as per patient he had a colonoscopy done in the past, will obtain the records and review, patient was advised in case there is a worsening of bleeding per rectum, he need to call us or Dr. Gar for evaluation. Signed By: Jackelin Meier M.D. <<Signature on File>>
== END 2021-07-28 12:09 | disposition home or self-care (01) ==
LOC: ONCMED 12:13
PROVIDERS: PCP Family Medicine; Visit Provider Internal Medicine Hematology & Oncology
DX: C61 Malignant neoplasm of prostate (principal); Z79.818 Long term (current) use of other agents affecting estrogen receptors and estrogen levels; K64.9 Unspecified hemorrhoids
CPT/HCPCS: 84153; 96372; 96402; 99215; J9202

== ENCOUNTER 2021-10-27 11:07 | Outpatient (CLI) | payer MEDICARE, MEDICAID, SELFPAY ==
[2021-10-27 12:34] LABS: Prostate Specific Antigen < 0.014 ng/mL (0-4)
[2021-10-27] MEDS: goserelin acetate 10.8 mg Implant SUBCUT (15:39)
--- NOTE | 2021-11-03 08:24 | ONC FU_ITS ---
Dr. Meier follow up note Patient: Carmine Kong Unit #: [id number]: 1970 Dicatated By: Jackelin Meier M.D.Date of Visit:Oct 27, 2021 Onc Med Follow-up/Prog Note History of Present Illness: Mr. Kong is a 51-year-old gentleman with history of hematuria eventually diagnosed with right renal stone in 2016. At that time he underwent right ureteral stent and multiple ESWL. During follow-up, he was noted to have elevated PSA and on 06/02/2019 his PSA was 71.94 with abnormal KARI e.g. distinct firmness on the right apex. On 06/02/2019, he underwent ultrasound guided biopsy and sonogram showed hypoechoic lesion, large area of right side of prostate extending what appears to be extraprostatic toward the base. Also significant portion of peripheral zone appeared hypoechoic. Multiple biopsies were obtained, 4 on the left side and 6 on the right, final pathology report came back large volume Otilio 3+4 prostate adenocarcinoma bilaterally, PSA was 71.94 at the time of diagnosis Mr Kong was started on Bicalutamide 50 mg by mouth daily by Dr. Loera. He was also started on Zoladex on 07/04/2019. CT scan of abdomen pelvis done on 06/14/2019 showed no evidence of metastatic disease no sclerotic bone lesions Bone scan done on 06/14/2019 showed no evidence of osseous metastatic disease. He was treated with combined radiation therapy and ADT with Zoladex, Completed radiation therapy on October 25, 2019 and he discontinued Casodex on 08/14/2019. He is continued on adjuvant therapy with Zoladex every 3 months. He has tolerated that well. Came for follow-up, denies any specific complaint except progressive generalized weakness and fatigue, patient has also gained some weight, as per patient he do not get enough sleep at night, and feels sleepy during daytime. New bony pains, no dysuria or hematuria, no nausea or vomiting, no diarrhea constipation, no jaundice, occasionally hot flashes otherwise tolerating 3 monthly Zoladex well Medications: Cholecalciferol 1 Tablet (of 1000 Units) Oral daily, Claritin 1 Tablet (of 10 mg) Oral daily, Diflunisal 1 Tablet (of 500 mg) Oral q 12 hours, Nortriptyline HCl 1 Capsule (of 25 mg) Oral at bedtime, Omeprazole 1 Capsule (of 20 mg) Capsule Delayed Release Oral b.i.d., Oxybutynin Chloride 1 Tablet (of 5 mg) Oral daily, Potassium Citrate ER 1 Tablet (of 10 meq ) Tablet, controlled release Oral b.i.d., ProAir HFA 1 Puff(s) (of 108 (90 base) mcg/act) Aerosol, solution Inhalation q 3 hours, Propranolol HCl 1 Tablet (of 20 mg) Oral b.i.d., traMADol HCl Tablet Oral PRN, Tylenol with Codeine #3 1 (300-30 mg) Tablet Oral b.i.d. PRN, Zolpidem Tartrate 1 Tablet (of 5 mg) Oral at bedtime Allergies: No Known Allergies. Review of Systems: Review of Systems is not available for this patient. Vital Signs: Performed on Oct 27, 2021 15:27 Height - 68.00 in Weight - 223.4 lbs (HIGH) BSA - 2.14 sq.m BMI - 33.97 (HIGH) Temperature - 97.8 F (LOW) Pulse - 87 /min Respiration - 18 /min BP - 131/82 mm(hg) O2 Sat - 96 % Pain - 3 Fatigue - 5 Performance Status: 0 - Fully active, able to carry on all predisease activities without restrictions. (ECOG) Physical Examination: ENMT - No mouth sores, no thrush, no jaundice, Respiratory - Poor air entry otherwise clear, Cardiovascular - Regular rate and rhythm of heart, Abdomen - Soft, bowel sounds present, Extremities - No visible edema. Lab/Imaging: Most recent lab results are not available for this patient. Impression: Prostatic adenocarcinoma, large volume, [employer] score 3+4 bilaterally per TRUSP/biopsy done on 06/02/2019, PSA at the time of diagnosis was 71.[address] scan of abdomen pelvis done on 06/14/2019 showed no evidence of metastatic disease Bone scan done on 06/14/2019 showed no evidence of metastatic disease History of right renal stone status post ESWL Started on Zoladex on 07/04/2019 along with Casodex , Casodex was discontinued on August 14, 2019, patient was started on radiation therapy to prostate cancer on August 29, 19992009 to October 25, 2019, Now being treated with adjuvant therapy with Zoladex alone Plan: Discussed with patient regarding his labs, his PSA is less than 0.014 compared to 0.018 on July 28, 2021 Clinically, patient doing well with no new signs symptom suggestive of recurrence of disease, tolerating adjuvant therapy with Zoladex well but with expected side effects e.g. hot flashes and generalized weakness and fatigue, as far as progressive generalized weakness and fatigue is concerned, probably multifactorial including underlying sleep apnea, we will suggest his PMD regarding sleep study to confirm sleep apnea as he may benefit from CPAP. In the meantime we will proceed with his next 3 monthly dose of Zoladex today and then he will return to clinic in 3 months with PSA and for Zoladex. Signed By: Jackelin Meier M.D. <<Signature on File>>
== END 2021-10-27 11:08 | disposition home or self-care (01) ==
PROVIDERS: PCP Family Medicine; Visit Provider Internal Medicine Hematology & Oncology
DX: C61 Malignant neoplasm of prostate (principal); Z92.3 Personal history of irradiation; Z79.899 Other long term (current) drug therapy
CPT/HCPCS: 84153; 96372; 96402; 99215; J9202

== ENCOUNTER 2022-01-30 08:02 | Oncology outpatient (recurring) (ONCR) | payer MEDICARE, MEDICAID, SELFPAY ==
[2022-01-30 08:59] LABS: Prostate Specific Antigen < 0.014 ng/mL (0-4)
[2022-01-30 09:55] LABS: Basophils % 0.7 %; Eosinophils # 0.2 10^3/uL (0.0-0.8); Eosinophils % 4.1 %; Hematocrit 39.5 % (42.0-52.0); Hemoglobin 13.5 g/dL (11.7-16.6); Lymphocytes # 1.1 10^3/uL (0.8-4.8); Mean Corpuscular HGB Conc 34.2 g/dL (30.0-36.0); Mean Corpuscular Hemoglobin 30.1 pg (28.0-34.0); Mean Corpuscular Volume 88.2 fl (80-94); Mean Platelet Volume 9.5 fL (7.4-10.4); Monocytes # 0.6 10^3/uL (0.2-0.9); Monocytes % 13.4 %; Neutrophils # 2.46 10^3/uL (1.8-7.7); Neutrophils % 55.9 %; Nucleated Red Blood Cells % 0 %; Platelet Count 204 10^3/cmm (130-400); Red Blood Count 4.48 10^6/uL (4.1-5.3); Red Cell Distribution Width 12.6 % (12.1-15.1); White Blood Count 4.4 10^3/uL (4.0-10.0)
[2022-01-30] MEDS: lidocaine 1% INJ 20 mL SUBCUT (10:26)
[2022-01-30] MEDS: goserelin acetate 10.8 mg Implant SUBCUT (10:36)
== END 2022-03-01 23:59 | disposition home or self-care (01) ==
PROVIDERS: PCP Family Medicine; Visit Provider Internal Medicine Hematology & Oncology
DX: Z51.11 Encounter for antineoplastic chemotherapy (principal); C61 Malignant neoplasm of prostate; K62.5 Hemorrhage of anus and rectum
CPT/HCPCS: 36415; 84153; 85025; 96372; 96402; 99214; J9202

== ENCOUNTER → 2022-03-09 17:40 | Outpatient (BNVA) | payer MEDICARE, MEDICAID, SELFPAY | PROVIDERS: PCP Family Medicine; Visit Provider Family Medicine | DX: E11.9 Type 2 diabetes mellitus without complications (principal); E78.5 Hyperlipidemia, unspecified; I10 Essential (primary) hypertension; M62.830 Muscle spasm of back; G43.909 Migraine, unspecified, not intractable, without status migrainosus | CPT/HCPCS: 80053; 80061; 83036; 84443; 85025 ==

== ENCOUNTER → 2022-09-25 09:12 | Outpatient (BNVA) | payer MEDICARE, MEDICAID, SELFPAY | PROVIDERS: PCP Family Medicine; Visit Provider Internal Medicine Hematology & Oncology | DX: I10 Essential (primary) hypertension (principal); E11.9 Type 2 diabetes mellitus without complications; E78.5 Hyperlipidemia, unspecified; C61 Malignant neoplasm of prostate | CPT/HCPCS: 80053; 80061; 83036; 84153; 84443; 85025 ==

== ENCOUNTER 2022-09-29 13:19 | Oncology outpatient (recurring) (ONCR) | payer MEDICARE, MEDICAID, SELFPAY | END 2022-09-29 23:59 | disposition home or self-care (01) | LOC: ONCMED 13:21 | PROVIDERS: PCP Family Medicine; Visit Provider Internal Medicine Hematology & Oncology | DX: C61 Malignant neoplasm of prostate (principal); Z79.818 Long term (current) use of other agents affecting estrogen receptors and estrogen levels; Z92.3 Personal history of irradiation; Z96.0 Presence of urogenital implants | CPT/HCPCS: 99214 ==

== ENCOUNTER 2022-12-21 08:46 | Outpatient (CLI) | payer MEDICARE, MEDICAID, SELFPAY ==
--- NOTE | 2022-12-21 08:52 | NM_ITS ---
WS: [id number] NUCLEAR MEDICINE BONE SCAN Radiopharmaceutical: 25.1 Tc-99m MDP mCi IV Injection site: antecubital Postinjection imaging delay: 1 hr CLINICAL INFORMATION: follow up COMPARISON: FINDINGS: Bone lesions: There are no osseous lesions suspicious for metastatic disease. Soft tissue contours: Normal. Kidneys: Normal. 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 NM/NM bone scan whole body* [id number] IMPRESSION: No evidence of osseous metastatic disease.
[2022-12-21] MEDS: iohexol 350 mg/mL 500 mL Btl (per mL) PO (10:10)
[2022-12-21] MEDS: iohexol 350 mg/mL 500 mL Btl (per mL) IV (10:39)
--- NOTE | 2022-12-21 12:00 | CT_ITS ---
WS: [id number] CT ABDOMEN PELVIS TECHNIQUE: Contrast-enhanced CT of the abdomen and pelvis with coronal and sagittal reformatted image s. CLINICAL INFORMATION: follow up COMPARISON: CT 2019 DLP: 940.[address] scans at [facility] use at least one of these dose optimization techniques: automated e xposure control; mA and/or kV adjustment per patient size (includes targeted exams where dose is matc hed to clinical indication); or iterative reconstruction. FINDINGS: Hepatomegaly. Diffuse fatty infiltration liver. Lung bases are well aerated. Normal portal vein and s plenic vein. Normal spleen. Normal pancreatic parenchymal enhancement. Adrenal glands are normal. Nor mal renal parenchymal enhancement. No hydronephrosis. Small RIGHT renal cyst measuring 9 mm. No hydro nephrosis in either kidney. Fat-containing inguinal hernias. A few sigmoid diverticuli. No evidence of acute diverticulitis. No e vidence of high-grade small or large bowel obstruction. Tiny fat-containing umbilical hernia. Normal lumbar spine. Disc space narrowing worse L5-S1. No visualized sclerotic bony lesions. CT/CT abdomen pelvis w con* [id number] IMPRESSION: 1. No evidence of metastatic disease in the abdomen or pelvis. 2. Hepatomegaly with diffuse fatty infiltration. 3. Small RIGHT renal cyst. Stable dilatation RIGHT renal pelvis. No hydronephr osis. 4. Bilateral fat-containing inguinal hernias unchanged.
== END 2022-12-21 08:47 | disposition home or self-care (01) ==
LOC: RAD 08:47
PROVIDERS: PCP Family Medicine; Visit Provider Internal Medicine Hematology & Oncology
DX: C61 Malignant neoplasm of prostate (principal); K76.0 Fatty (change of) liver, not elsewhere classified; N28.1 Cyst of kidney, acquired; K40.20 Bilateral inguinal hernia, without obstruction or gangrene, not specified as recurrent
CPT/HCPCS: 74177; 78306; A9561; Q9967

== ENCOUNTER → 2022-12-24 10:33 | Outpatient (BNVA) | payer MEDICARE, MEDICAID, SELFPAY | PROVIDERS: PCP Family Medicine; Visit Provider Family Medicine | DX: E78.5 Hyperlipidemia, unspecified (principal); E11.9 Type 2 diabetes mellitus without complications; I10 Essential (primary) hypertension; C61 Malignant neoplasm of prostate | CPT/HCPCS: 80053; 80061; 83036; 84153; 85025 ==

== ENCOUNTER 2022-12-30 13:44 | Oncology outpatient (recurring) (ONCR) | payer MEDICARE, MEDICAID, SELFPAY | END 2022-12-30 23:59 | disposition home or self-care (01) | PROVIDERS: PCP Family Medicine; Visit Provider Internal Medicine Hematology & Oncology | DX: C61 Malignant neoplasm of prostate (principal); N28.1 Cyst of kidney, acquired; K40.20 Bilateral inguinal hernia, without obstruction or gangrene, not specified as recurrent; M17.0 Bilateral primary osteoarthritis of knee; M19.011 Primary osteoarthritis, right shoulder; M19.012 Primary osteoarthritis, left shoulder; Z79.818 Long term (current) use of other agents affecting estrogen receptors and estrogen levels; Z79.899 Other long term (current) drug therapy | CPT/HCPCS: 99213 ==

== ENCOUNTER → 2023-04-28 12:10 | Outpatient (BNVA) | payer MEDICARE, MEDICAID, SELFPAY | PROVIDERS: PCP Family Medicine; Visit Provider Family Medicine | DX: C61 Malignant neoplasm of prostate (principal); R14.0 Abdominal distension (gaseous); Z12.11 Encounter for screening for malignant neoplasm of colon; R05.9 Cough, unspecified; E11.9 Type 2 diabetes mellitus without complications; I10 Essential (primary) hypertension; H61.22 Impacted cerumen, left ear | CPT/HCPCS: 80053; 83036; 85025; 87426 ==

== ENCOUNTER 2023-04-29 07:56 | Outpatient (CLI) | payer MEDICARE, MEDICAID, SELFPAY ==
--- NOTE | 2023-04-29 08:04 | XR_ITS ---
WS: [id number] KUB, AP view, 04/29/2023 Clinical Data: R14.0 - Abdominal distension (gaseous) Comparison: KUB, 12/11/2019 Findings: No abnormal intraabdominal masses or calcifications are seen. There is no dilatated small bowel or ev idence of obstruction. There is a large amount of fecal material throughout the colon. Impression: Large amount of fecal material in the colon.
== END 2023-04-29 07:57 | disposition home or self-care (01) ==
PROVIDERS: PCP Family Medicine; Visit Provider Family Medicine
DX: R14.0 Abdominal distension (gaseous) (principal)
CPT/HCPCS: 74018

== ENCOUNTER → 2023-05-06 15:01 | Outpatient (BNVA) | payer MEDICARE, MEDICAID, SELFPAY | PROVIDERS: PCP Family Medicine; Referring Provider Family Medicine; Visit Provider Surgery | DX: Z12.11 Encounter for screening for malignant neoplasm of colon (principal); K62.5 Hemorrhage of anus and rectum | CPT/HCPCS: 99024; 99214 ==

== ENCOUNTER → 2024-07-12 11:28 | Outpatient (BNVA) | payer MEDICARE, MEDICAID, SELFPAY | PROVIDERS: PCP Family Medicine; Visit Provider Clinical Nurse Specialist Adult Health | DX: R05.9 Cough, unspecified (principal) | CPT/HCPCS: 87426 ==

== ENCOUNTER → 2024-09-08 11:16 | Outpatient (BNVA) | payer MEDICARE, MEDICAID, SELFPAY | PROVIDERS: PCP Clinical Nurse Specialist Adult Health; Visit Provider Clinical Nurse Specialist Adult Health | DX: E11.9 Type 2 diabetes mellitus without complications (principal) | CPT/HCPCS: 80053; 80061; 83036; 85025 ==

== ENCOUNTER → 2024-11-06 09:04 | Outpatient (BNVA) | payer MEDICARE, MEDICAID, SELFPAY | PROVIDERS: PCP Clinical Nurse Specialist Adult Health; Visit Provider Clinical Nurse Specialist Adult Health | DX: E87.6 Hypokalemia (principal); C61 Malignant neoplasm of prostate | CPT/HCPCS: 80048; 84153 ==

== ENCOUNTER → 2024-11-27 09:53 | Outpatient (BNVA) | payer MEDICARE, MEDICAID, SELFPAY | PROVIDERS: PCP Clinical Nurse Specialist Adult Health; Visit Provider Clinical Nurse Specialist Adult Health | DX: E87.6 Hypokalemia (principal) | CPT/HCPCS: 80048 ==

== ENCOUNTER → 2024-12-15 09:38 | Outpatient (BNVA) | payer MEDICARE, MEDICAID, SELFPAY | PROVIDERS: PCP Clinical Nurse Specialist Adult Health; Visit Provider Clinical Nurse Specialist Adult Health | DX: E11.9 Type 2 diabetes mellitus without complications (principal); I10 Essential (primary) hypertension; G47.19 Other hypersomnia | CPT/HCPCS: 80053; 80061; 81000; 82607; 83036; 84443; 85025 ==

== ENCOUNTER → 2025-03-16 10:29 | Outpatient (BNVA) | payer MEDICARE, MEDICAID, SELFPAY | PROVIDERS: PCP Clinical Nurse Specialist Adult Health; Visit Provider Clinical Nurse Specialist Adult Health | DX: E55.9 Vitamin D deficiency, unspecified (principal); E11.9 Type 2 diabetes mellitus without complications; D50.9 Iron deficiency anemia, unspecified | CPT/HCPCS: 80053; 80061; 82306; 82607; 83036; 83540; 85025 ==

== ENCOUNTER → 2025-06-12 08:23 | Outpatient (BNVA) | payer MEDICARE, MEDICAID, SELFPAY | PROVIDERS: PCP Clinical Nurse Specialist Adult Health; Visit Provider Clinical Nurse Specialist Adult Health | DX: E11.9 Type 2 diabetes mellitus without complications (principal); E87.6 Hypokalemia; E55.9 Vitamin D deficiency, unspecified | CPT/HCPCS: 80053; 80061; 82306; 82607; 83036; 85025 ==